=== PATIENT | male | born 1990 | race Caucasian/White ===

== ENCOUNTER 2017-12-10 06:44 | Emergency (ER) | payer MEDICARE, SELFPAY ==
[2017-12-10 06:45] VITALS: BP 131/70; PULSE 89; RESP 17; TEMP 36.7; O2SAT 99; BMI 24.1
--- NOTE | 2017-12-10 07:37 | CT_ITS ---
STUDY: CT ABDOMEN AND PELVIS WITH CONTRAST REASON FOR EXAM: Male, 27 years old. Abdominal pain. RADIATION DOSAGE (If Supplied By Facility): CTDIvol = ( 14.40 ) mGy, DLP = ( 715.40 ) mGycm TECHNIQUE: Transaxial images were obtained from the dome of the diaphragm to the symphysis pubis with oral contrast. 100 ml of Isovue 300 intravenous (IV) contrast was administered. Sagittal and coronal images were reconstructed. Individualized dose optimization techniques were used for this CT. COMPARISON: None. FINDINGS: The visualized lung bases are unremarkable. The visualized portions of the heart are within normal limits. Normal liver. Normal gallbladder and extrahepatic biliary system. Normal spleen. Normal pancreas. Normal bilateral adrenal glands. Normal right kidney. Normal left kidney. Mild intramural edema in the gastric antrum. Normal small intestine. Normal colon. The appendix is visualized and appears normal. Normal abdominal aorta. Normal inferior vena cava. Normal retroperitoneum. Normal urinary bladder. Normal abdominal wall. Minimal anterior wedging of the T12 superior endplate may be developmental or from remote injury. The osseous elements are otherwise normal. CT/Abdomen/Pelvis WITH Contrast IMPRESSION: Suspicious intramural edema in the gastric antrum may be due to gastritis. Endoscopy will help confirm/clarify. No other suspicious abnormality in the abdomen and pelvis. Minimal anterior wedging of T12 superior endplate may be due developmental or from remote injury. Electronically Signed: Crow Obregon MD at 10:37 EDT , Service support ,
[2017-12-10 07:55] LABS: Absolute Lymphocyte Count 2.39 X10^3/ul (0.83-4.51); Absolute Neutrophil Count 7.3 X10^3/uL (2.0-7.7); Basophil# 0.04 X10^3/uL; Basophil% 0.4 % (0-1); Eosinophil# 0.36 X10^3/uL; Eosinophils% 3.3 % (0-5); Hematocrit 49.9 % (40-54); Hemoglobin 16.6 g/dl (13.0-16.5); Lymphocyte # 2.39 X10^3/ul (4.0); Lymphocyte % 21.7 % (19-41); Mean Corp Hgb Conc 33.3 g/gl (32-36); Mean Corpuscular Hgb 31.3 pg (27.0-32.0); Mean Platelet Vol. 9.9 fl (6.2-12.0); Monocyte# 0.92 X10^3/uL; Monocyte% 8.4 % (0-10); Neutrophil # 7.28 X10^3/uL (2.7-7.7); POSITIVE COUNT NO; POSITIVE DIFFERENTIAL NO; POSITIVE MORPHOLOGY NO; Platelet Count 417 K/mm3 (150-450); RBC Distribution Width SD 51.1 fl (35.1-43.9); Red Blood Count 5.31 M/mm3 (4.6-6.2)
[2017-12-10] MEDS: Dicyclomine 20 MG/2 ML Vial IM (08:00)
[2017-12-10] MEDS: 0.9% Normal Saline 1,000 ML 125 ML IV (08:00)
[2017-12-10 08:04] LABS: BUN 11 mg/dL (7-18); Creatinine, Serum 0.86 mg/dL (0.70-1.30); EST Glomerular Filtration Rate 112 mL/min (>60); Estimated Creatinine Clearance 127.88 ml/min; Glucose 263 mg/dL (74-106)
[2017-12-10 08:05] LABS: ALB/GLOB Ratio 1.1 RATIO (0.9-2.4); AST(SGOT) 9 U/L (15-37); Alanine Aminotransfer ALT/SGPT 14 U/L (16-61); Albumin, Serum 3.6 g/dL (3.2-5.0); Alkaline Phosphatase 70 U/L (45-117); Anion Gap 4 (5-15); BUN/Creat Ratio 12.8 RATIO (10-20); Calcium,Total 8.7 mg/dL (8.5-10.1); Chloride 107 mmol/L (98-107); Est Glom Filt Rate - Afr Amer 136 mL/min (>60); Globulin 3.4 g/dL (2.2-4.2); Lipase 89 U/L (73-393); Potassium 3.9 mmol/L (3.5-5.1); Sodium Level 141 mmol/L (136-145)
[2017-12-10 09:44] LABS: Bacteria 0 SEEN /hpf (None Seen); Mucous, Urine 0 SEEN /hpf (<or=2+); White Blood Cells 0 SEEN /hpf (0-5)
[2017-12-10 09:47] LABS: Color, Urine Yellow (Yellow); Glucose, Dipstick 1000 mg/dl (Normal); Ketone-Dipstick 15 mg/dl (Negative); Leukocyte Esterase-Dipstick Negative /ul (Negative); Nitrite-Dipstick Negative (Negative); Occult Blood-Urine Negative /ul (Negative); Protein-Dipstick 15 mg/dl (Negative); Urine Bilirubin Dipstick Negative (Negative); Urine Clarity Clear (Clear); Urine Urobilinogen Normal (Normal); Urine pH 6.5 (5.0 - 8.0)
[2017-12-10 10:03] LABS: Red Blood Cells-Urine 0-5 SEEN /hpf (0-5); Squamous Epithelial Cells - UA 0-5 SEEN /hpf (0-5)
--- NOTE | 2017-12-10 11:03 | ED.DCSUM_ITS ---
- ER Visit Summary Date of Service: 12/10/17 Chief Complaint: [Abdominal pain] History of Present Illness: The patient is a 27 M [presents the emergency department complaint of lower abdominal discomfort for about a week. Patient states that he has had the urge to defecate and urinate frequently. Patient denies any significant dysuria with urinating. Patient states he normally gets small amount of stool out with each defecation that is formed and not been watery. Patient's not been ill otherwise. He has had no fever or vomiting. Patient has had some mild nausea. Patient does have a history of diabetes and history of MS.] Physical Examination: [HEENT-PERRLA, EOMI. Cranial nerves II through XII grossly intact. TMs clear. Mucous membranes moist. No adenopathy. Cardiovascular-regular rate and rhythm without murmur or ectopy Lungs-clear to auscultation, chest wall stable without crepitus or subcu emphysema Abdomen-normoactive bowel sounds, soft, no rebound or rigidity, no peritoneal signs. Patient has some mild suprapubic tenderness on palpation. Extremities-intact ?4, normal range of motion, normal pulses, atraumatic] Test Results: [CBC with differential obtained showed a white count 11.0, hemoglobin 16, hematocrit 50, platelets 417. Chemistries unremarkable. Glucose was 263. LFTs were normal. Lipase was normal. Urinalysis was normal. Other than patient was spilling glucose. CT scan of the abdomen and pelvis with IV and p.o. contrast ordered showed evidence suspicious for intramural edema and gastric antrum may be due to gastritis endoscopy will help confirm or clarify. No other suspicious abnormality in abdomen and pelvis noted.] Emergency Department Course and Treatment: [Patient was given a dose of Bentyl in the emergency department] Treatment Plan: [Patient will follow up with his MS physician and also will refer to Dr. Boy Moncada was on-call for general surgery if his symptoms persist] Disposition: [Discharged home in stable condition] Impression: [Abdominal pain-etiology uncertain] This note was generated with [employer] dictation software. It may contain incorrect words, spelling, and punctuation that were not noted in review of the chart prior to signing ED Disposition - Plan for ED Patient: Chief Complaint: Abd Pain Referrals: Neto Kirkland MD [Primary Care Provider] -
--- NOTE | 2017-12-10 11:03 | ED.DEP ---
ED Disposition - Plan for ED Patient: Chief Complaint: Abd Pain Instructions: ED Abdominal Pain Unkn Cause Male Prescriptions: Dicyclomine HCl [Bentyl] 20 mg PO TIDAC #20 cap Referrals: Boy Moncdaa MD [STAFF PHYSICIAN] - 3-5 Days Additional Instructions: see your MS doctor
== END 2017-12-10 11:21 | disposition home or self-care (01) ==
PROVIDERS: Emergency Provider Emergency Medicine; Family Provider Family Medicine; PCP Family Medicine
DX: R10.9 Unspecified abdominal pain (principal); E11.9 Type 2 diabetes mellitus without complications; G35 Multiple sclerosis; F12.90 Cannabis use, unspecified, uncomplicated; Z79.4 Long term (current) use of insulin; Z72.0 Tobacco use
CPT/HCPCS: 74177; 80053; 81001; 83690; 85025; 96360; 96361; 96372; 99283; J7030; Q9967; A4216

== ENCOUNTER → 2019-01-19 10:32 | Outpatient (CLI) | payer MEDICARE, SELFPAY ==
[2018-03-31 13:26] VITALS: BMI 22.1
[2019-01-19 13:26] LABS: ALB/GLOB Ratio 1.2 RATIO (0.9-2.4); AST(SGOT) 11 U/L (15-37); Alanine Aminotransfer ALT/SGPT 20 U/L (16-61); Albumin, Serum 4.2 g/dL (3.2-5.0); Alkaline Phosphatase 85 U/L (45-117); Anion Gap 3 (5-15); BUN 12 mg/dL (7-18); BUN/Creat Ratio 12.9 RATIO (10-20); Calcium,Total 9.1 mg/dL (8.5-10.1); Chloride 104 mmol/L (98-107); Creatinine, Serum 0.93 mg/dL (0.70-1.30); EST Glomerular Filtration Rate 102 mL/min (>60); Est Glom Filt Rate - Afr Amer 123 mL/min (>60); Globulin 3.6 g/dL (2.2-4.2); Glucose 310 mg/dL (74-106); Potassium 3.9 mmol/L (3.5-5.1); Protein, Total 7.8 g/dL (6.4-8.2); Sodium Level 137 mmol/L (136-145)
== END ==
PROVIDERS: Family Provider Family Medicine; PCP Family Medicine; Referring Provider Nurse Practitioner; Visit Provider Nurse Practitioner
DX: E10.9 Type 1 diabetes mellitus without complications (principal); Z79.4 Long term (current) use of insulin
CPT/HCPCS: 36415; 80053; 82043

== ENCOUNTER → 2020-02-12 11:42 | Outpatient (CLI) | payer MEDICARE, SELFPAY ==
[2020-02-11 11:23] VITALS: BMI 22.1
[2020-02-12 15:41] LABS: Vitamin D,25 Hydroxy 16.5 ng/mL
[2020-02-12 15:56] LABS: AST(SGOT) 20 U/L (15-37); Alanine Aminotransfer ALT/SGPT 15 U/L (16-61); Albumin, Serum 3.9 g/dL (3.2-5.0); Alkaline Phosphatase 89 U/L (45-117); Anion Gap 7 (5-15); BUN 15 mg/dL (7-18); BUN/Creat Ratio 14.9 RATIO (10-20); Calcium,Total 8.8 mg/dL (8.5-10.1); Chloride 100 mmol/L (98-107); Cholesterol 223 mg/dL (200); Creatinine, Serum 1.01 mg/dL (0.70-1.30); EST Glomerular Filtration Rate 92 mL/min (>60); Est Glom Filt Rate - Afr Amer 111 mL/min (>60); Globulin 3.8 g/dL (2.2-4.2); Glucose 285 mg/dL (74-106); High Density Lipoprotein 57 mg/dL; Potassium 4.5 mmol/L (3.5-5.1); Protein, Total 7.7 g/dL (6.4-8.2); Sodium Level 131 mmol/L (136-145); Thyroid Stim Hormone (TSH) 0.66 uIU/mL (0.358-3.74); Triglycerides 96 mg/dL; Very Low Density Lipoprotein 19 mg/dL (5-40)
[2020-02-12 16:06] LABS: Microalbumin:Creatinine Ratio 184.3 mg/g CRE (<30 mg/g CRE)
== END ==
PROVIDERS: PCP Family Medicine; Referring Provider Internal Medicine Endocrinology, Diabetes & Metabolism; Visit Provider Internal Medicine Endocrinology, Diabetes & Metabolism
DX: E10.8 Type 1 diabetes mellitus with unspecified complications (principal); E55.9 Vitamin D deficiency, unspecified
CPT/HCPCS: 36415; 80053; 80061; 82043; 82306; 82570; 84443

== ENCOUNTER → 2021-03-21 16:01 | Outpatient (CLI) | payer MEDICARE, SELFPAY ==
[2021-03-21 17:46] LABS: AST(SGOT) 11 U/L (15-37); Alanine Aminotransfer ALT/SGPT 15 U/L (16-61); Albumin, Serum 3.5 g/dL (3.2-5.0); Alkaline Phosphatase 65 U/L (45-117); Anion Gap 5 (5-15); BUN 13 mg/dL (7-18); BUN/Creat Ratio 12.3 RATIO (10-20); Calcium,Total 9.1 mg/dL (8.5-10.1); Chloride 103 mmol/L (98-107); Cholesterol 222 mg/dL (200); Creatinine, Serum 1.06 mg/dL (0.70-1.30); EST Glomerular Filtration Rate 86 mL/min (>60); Est Glom Filt Rate - Afr Amer 104 mL/min (>60); Globulin 3.4 g/dL (2.2-4.2); Glucose 323 mg/dL (74-106); High Density Lipoprotein 55 mg/dL; Potassium 4.5 mmol/L (3.5-5.1); Protein, Total 6.9 g/dL (6.4-8.2); Sodium Level 135 mmol/L (136-145); Thyroid Stim Hormone (TSH) 0.78 uIU/mL (0.358-3.74); Triglycerides 119 mg/dL; Very Low Density Lipoprotein 24 mg/dL (5-40)
== END ==
PROVIDERS: PCP Family Medicine; Referring Provider Nurse Practitioner Family; Visit Provider Nurse Practitioner Family
DX: E10.65 Type 1 diabetes mellitus with hyperglycemia (principal)
CPT/HCPCS: 36415; 80053; 80061; 84443

== ENCOUNTER 2021-07-30 18:02 | Emergency (ER) | payer MEDICARE, SELFPAY ==
[2021-07-30 18:03] VITALS: BP 122/68; PULSE 84; RESP 16; TEMP 36.9; O2SAT 99; BMI 21.0
--- NOTE | 2021-07-30 18:31 | CT_ITS ---
EXAM: CT ABDOMEN AND PELVIS WITHOUT INTRAVENOUS CONTRAST CLINICAL INDICATION: Abdominal pain. TECHNIQUE: Helically acquired images were obtained of the abdomen and pelvis without intravenous contrast. This CT exam was performed using one or more of the following dose reduction techniques: automated exposure control, adjustment of the mA and/or kV according to patient size, and/or use of iterative reconstruction technique. This report was created using [employer] report generation technology. COMPARISON: CT abdomen and pelvis with contrast 12/10/2017. FINDINGS: LOWER THORAX: Unremarkable. Lung bases are clear. No cardiomegaly. No significant pericardial effusion. ABDOMEN: LIVER: Unremarkable. Homogeneous. GALLBLADDER AND BILE DUCTS: Unremarkable. No calcified gallstones. No gallbladder distention or wall edema. No intra- or extrahepatic biliary ductal dilation. PANCREAS: Unremarkable. No focal cystic mass. SPLEEN: Unremarkable. Normal size without focal cystic or solid mass. ADRENALS: Unremarkable. No nodules. KIDNEYS AND URETERS: 2 mm nonobstructing calculus in the right lower renal pole. 2 mm nonobstructing calculus in the left lower renal calyx. No hydronephrosis in both kidneys. STOMACH AND BOWEL: Unremarkable. No stomach or bowel distention. No focal inflammatory change. PELVIS: APPENDIX: Normal. BLADDER: Mild thickening of the underdistended urinary bladder wall. REPRODUCTIVE: Unremarkable as visualized. No mass. ABDOMEN and PELVIS: INTRAPERITONEAL SPACE: Unremarkable. No ascites or other fluid collection. No free air. BONES/JOINTS: Unremarkable. No suspicious lytic or blastic abnormality. SOFT TISSUES: Unremarkable. No discrete abdominal or pelvic wall hernia. VASCULATURE: Unremarkable. Abdominal aorta is non-dilated. LYMPH NODES: Unremarkable. No enlarged lymph nodes. CT/Abdomen/Pelvis without Cont IMPRESSION: 1. 2 mm nonobstructing calculus in the right lower renal calyx and 2 mm nonobstructing calculus in the left lower renal calyx. These were not visible on 12/10/2017. 2. Mild thickening of the underdistended urinary bladder wall may be due to cystitis. 3. No suspicious acute abnormality in the abdomen and pelvis. 4. No other additional findings or changes. Electronically Signed: Crow Obregon MD at 19:24 EDT ,
--- NOTE | 2021-07-30 18:32 | EX.ED.GUMALE ---
HPI History of Present Illness Chief Complaint: Complaint Informant: patient Narrative Narrative: Patient presents with some intermittent hematuria for about 1 week. This started about on Saturday. He saw his doctor on Saturday. Up apparently urinalysis was done that showed no sign of infection. He does have follow-up CAT scan at the end of this week. He states he is really not having any significant flank or abdominal pain. A couple times he has had a small amount of discomfort over the bladder but is mostly with urination. He states sometimes the urine is clear and sometimes there is a variable amount of blood at the end. Possible small clots but not sure. He does not feel as though he is obstructed. He is eating and drinking and moving bowels well. No fevers or chills. He had subjective chills last night but it was only 1 time and it was brief. Patient is on immunosuppressants for MS. He is also diabetic. He has had a couple high sugars about 250 but normally he is 170 or less. He does not have a history of kidney stones. [facility] Medical History Microalbuminuria Multiple sclerosis Type 1 diabetes mellitus Home Medications rituximab 10 mg/mL concentrate,intravenous See Rx Instructions .ROUTE .COMPLEX ml 03/26/18 [History Last Taken Unknown] ibuprofen 600 mg tablet 600 mg PO Q6H PRN PRN 01/06/21 [History Last Taken Unknown] lisinopril 20 mg tablet 20 mg PO DAILY #90 tab 01/06/21 [Rx Last Taken Unknown] Novolog Flexpen U-100 Insulin 100 unit/mL (3 mL) subcutaneous 15 unit SC TID #45 ml NS 02/23/21 [Rx Last Taken Unknown] cholecalciferol (vitamin D3) 1,250 mcg (50,000 unit) capsule 1,250 mcg PO QWEEK #12 cap 03/21/21 [Rx Last Taken Unknown] rosuvastatin 5 mg tablet 5 mg PO DAILY #90 tab 03/22/21 [Rx Last Taken Unknown] ibuprofen 600 mg PO Q8H PRN PRN #20 tab 07/30/21 [Rx Last Taken Unknown] insulin glargine [Basaglar KwikPen U-100 Insulin] 14 unit SC BID 07/30/21 [History Last Taken Unknown] phenazopyridine [Pyridium] 200 mg PO TID #6 tab 07/30/21 [Rx Last Taken Unknown] sulfamethoxazole-trimethoprim [Bactrim DS] 1 tab PO BID #20 tab 07/30/21 [Rx Last Taken Unknown] Allergy/AdvReac Type Severity Reaction Status Date / Time No Known Allergies Allergy Verified 07/30/21 18:03 Family History Mother Diabetes Thyroid disorder Grandmother Diabetes Thyroid disorder Surgical History H/O adenoidectomy Hx of myringotomy Social History Smoking Status: Current every day smoker tobacco type: cigarettes second hand exposure: No alcohol intake: never substance use type: marijuana ROS ROS ED Constitutional Constitutional ED: Reports subjective ENT ENT ED: Denies rhinorrhea or sore throat Cardiovascular Cardiovascular: Denies chest pain Respiratory/Chest Respiratory/Chest: Denies dyspnea Gastrointestinal Gastrointestinal: Reports abdominal pain; Denies constipation, diarrhea, melena, nausea or vomiting Genitourinary Genitourinary ED: Reports hematuria Musculoskeletal Musculoskeletal: Denies back pain or myalgias Integumentary Denies rash Neurologic Neurologic: Denies headache(s) Endocrine Endocrinology: Denies polydipsia or polyuria Hematologic/Lymphatic Hematologic/Lymphatic: Denies easy bleeding or easy bruising Allergic/Immunologic Allergic/Immunologic ED: Denies urticaria EXAM Physical Exam Const Vital Signs: 07/30/21 18:03 Temperature 98.5 F Temperature Source Temporal Pulse Rate 84 Respiratory Rate 16 Blood Pressure 122/68 H Blood Pressure Mean 86 Pulse Ox 99 Oxygen Delivery Method Room Air Positive well nourished and well developed General Appearance ED: well developed and NAD HEENT Reports moist mucous membranes Eyes General Eye ED: Negative for pale conjunctiva Neck no JVD Resp normal respiratory effort and clear to auscultation bilaterally Cardio regular rate and regular rhythm GI non-tender, non-distended and no masses Auscultation: normoactive bowel sounds Palpation: soft no CVA tenderness Back/Spine no CVA tenderness Extremity normal to inspection Neuro oriented x3 Sensorium / Orientation: alert Psych mental status grossly normal Skin Lesions: no lesions Rashes: no rashes MDM MDM MDM Narrative Medical decision making narrative: Patient's white count is elevated at 14.8. Mild elevation of the hemoglobin to. Creatinine is just slightly up at 1.35. Urine shows greater than 100 red cells but also greater 100 white cells. It is turbid. There is also leukocyte Estrace. Patient's ketones are elevated but his bicarb and gap are normal. His glucose is also relatively normal. CT scan showed some calculus in the right and left renal structure. But none distal. No hydronephrosis. The bladder was thickened more consistent with inflammation or infection. The summation of the symptoms with some mild discomfort with urination, blood in the urine, high white count and inflamed thickened bladder on CT points to infection. I will treat with antibiotics. Cultures will be sent. We discussed reasons to return. Of note, patient felt his sugar was dropping. It was 52. He is now eating and drinking. He feels well enough to go home. Lab Data Attestation: I reviewed the patient's lab results. Labs: Laboratory Results - last 24 hr 07/30/21 07/30/21 07/30/21 18:37 18:45 18:45 WBC 14.8 H RBC 5.49 Hgb 16.9 H Hct 47.7 MCV 86.9 MCH 30.8 MCHC 35.4 RDW Std Deviation 43.7 RDW Coeff of Ronnell 13.6 Plt Count 404 MPV 10.4 Immature Gran % (Auto) 0.300 Neut % (Auto) 68.0 Lymph % (Auto) 18.1 L Wirt % (Auto) 10.0 Eos % (Auto) 3.2 Baso % (Auto) 0.4 Absolute Neuts (auto) 10.1 H Absolute Lymphs (auto) 2.68 Nucleated RBC % 0 Sodium 139 Potassium 3.6 Chloride 108 H Carbon Dioxide 24.0 Anion Gap 7 BUN 18 Creatinine 1.35 H Estim Creat Clear Calc 73.89 Est GFR (MDRD) Af Amer 79 Est GFR (MDRD) Non-Af 65 BUN/Creatinine Ratio 13.3 Glucose 111 H Calcium 9.1 Urine Color Varsha Urine Clarity Turbid Urine pH 7.0 Ur Specific [place] 1.015 Urine Protein 500 H Urine Glucose (UA) Normal Urine Ketones 5 H Urine Occult Blood 250 H Urine Nitrite Negative Urine Bilirubin Negative Urine Urobilinogen 1 H Ur Leukocyte Esterase 500 H Urine RBC > 100 SEEN Urine WBC >100 SEEN Ur Squamous Epith Cells 0 SEEN Urine Bacteria 0 SEEN Urine Mucus 0 SEEN POC Glucose 07/30/21 20:26 WBC RBC Hgb Hct MCV MCH MCHC RDW Std Deviation RDW Coeff of Ronnell Plt Count MPV Immature Gran % (Auto) Neut % (Auto) Lymph % (Auto) Wirt % (Auto) Eos % (Auto) Baso % (Auto) Absolute Neuts (auto) Absolute Lymphs (auto) Nucleated RBC % Sodium Potassium Chloride Carbon Dioxide Anion Gap BUN Creatinine Estim Creat Clear Calc Est GFR (MDRD) Af Amer Est GFR (MDRD) Non-Af BUN/Creatinine Ratio Glucose Calcium Urine Color Urine Clarity Urine pH Ur Specific [place] Urine Protein Urine Glucose (UA) Urine Ketones Urine Occult Blood Urine Nitrite Urine Bilirubin Urine Urobilinogen Ur Leukocyte Esterase Urine RBC Urine WBC Ur Squamous Epith Cells Urine Bacteria Urine Mucus POC Glucose 52 L Radiography Diagnostic Testing: Clinical Impression(s) from Imaging Studies Abdomen/Pelvis CT 07/30/21 18:31 IMPRESSION: 1. 2 mm nonobstructing calculus in the right lower renal calyx and 2 mm nonobstructing calculus in the left lower renal calyx. These were not visible on 12/10/2017. 2. Mild thickening of the underdistended urinary bladder wall may be due to cystitis. 3. No suspicious acute abnormality in the abdomen and pelvis. 4. No other additional findings or changes. Electronically Signed: Crow Obregon MD at 19:24 EDT Reading Location ID and State: [address] [place] [address] , Service support , Discharge Plan Triage Chief Complaint: Complaint ED Provider: Adrián Alarcon Dx/Rx/DC Orders Clinical Impression: Acute UTI, Hematuria Instructions: ED Bladder Infection, Male (Adult) Prescriptions: New ibuprofen 600 MG tablet 600 mg PO Q8H PRN PRN (Reason: pain) Qty: 20 RF: 0 phenazopyridine [Pyridium] 200 mg tablet 200 mg PO TID Qty: 6 RF: 0 sulfamethoxazole-trimethoprim [Bactrim DS] 800-160 mg tablet 1 tab PO BID Qty: 20 RF: 0 No Action rituximab 10 mg/mL concentrate,intravenous 10 mg/mL concentrate See Rx Instructions .ROUTE .COMPLEX RF: 0 ibuprofen 600 mg tablet 600 mg PO Q6H PRN PRN (Reason: Pain) RF: 0 lisinopril 20 mg tablet 20 mg PO DAILY Qty: 90 RF: 1 cholecalciferol (vitamin D3) 1,250 mcg (50,000 unit) capsule 1,250 mcg PO QWEEK Qty: 12 RF: 0 Basaglar KwikPen U-100 Insulin 100 unit/mL (3 mL) insulin pen 14 unit SC BID RF: 0 Novolog Flexpen U-100 Insulin 100 unit/mL (3 mL) insulin pen 15 unit SC TID Qty: 45 RF: 1 rosuvastatin 5 mg tablet 5 mg PO DAILY Qty: 90 RF: 3 Primary Care Provider: Neto Kirkland Referrals: Neto Kirkland MD [Primary Care Provider] - 3-5 Days Disposition Disposition: Home, Self Care
[2021-07-30 19:01] LABS: Bacteria 0 SEEN /hpf (None Seen); Mucous, Urine 0 SEEN /hpf (<or=2+); Squamous Epithelial Cells - UA 0 SEEN /hpf (0-5)
[2021-07-30 19:02] LABS: Absolute Lymphocyte Count 2.68 X10^3/uL (0.83-4.51); Absolute Neutrophil Count 10.1 X10^3/uL (2.0-7.7); Basophil# 0.06 X10^3/uL; Basophil% 0.4 % (0-1); Eosinophil# 0.48 X10^3/uL; Eosinophils% 3.2 % (0-5); Hematocrit 47.7 % (40-54); Hemoglobin 16.9 g/dL (13.0-16.5); Lymphocyte # 2.68 X10^3/ul (0.83-4.51); Lymphocyte % 18.1 % (19-41); Mean Corp Hgb Conc 35.4 g/dL (32-36); Mean Corpuscular Hgb 30.8 pg (27.0-32.0); Mean Corpuscular Volume 86.9 fL (80-94); Mean Platelet Vol. 10.4 fl (6.2-12.0); Monocyte# 1.48 X10^3/uL; NRBC Flagged by Analyzer 0 % (0-5); Neutrophil # 10.05 X10^3/uL (2.7-7.7); Platelet Count 404 K/mm3 (150-450); RBC Distribution Width CV 13.6 % (11.6-14.6); RBC Distribution Width SD 43.7 fl (35.1-43.9); Red Blood Count 5.49 M/mm3 (4.6-6.2); White Blood Count 14.8 K/mm3 (4.4-11.0)
[2021-07-30 19:11] LABS: Color, Urine Amber (Yellow); Glucose, Dipstick Normal (Normal); Ketone-Dipstick 5 mg/dl (Negative); Leukocyte Esterase-Dipstick 500 /ul (Negative); Nitrite-Dipstick Negative (Negative); Occult Blood-Urine 250 /ul (Negative); Protein-Dipstick 500 mg/dl (Negative); Specific Gravity, Urine 1.015 (1.002-1.030); Urine Bilirubin Dipstick Negative (Negative); Urine Clarity Turbid (Clear); Urine Urobilinogen 1 mg/dl (Normal)
[2021-07-30 19:20] LABS: Anion Gap 7 (5-15); BUN 18 mg/dL (7-18); BUN/Creat Ratio 13.3 RATIO (10-20); Calcium,Total 9.1 mg/dL (8.5-10.1); Chloride 108 mmol/L (98-107); Creatinine, Serum 1.35 mg/dL (0.70-1.30); EST Glomerular Filtration Rate 65 mL/min (>60); Est Glom Filt Rate - Afr Amer 79 mL/min (>60); Estimated Creatinine Clearance 73.89 ml/min; Glucose 111 mg/dL (74-106); Potassium 3.6 mmol/L (3.5-5.1); Sodium Level 139 mmol/L (136-145)
[2021-07-30 19:49] LABS: Red Blood Cells-Urine > 100 SEEN /hpf (0-5); White Blood Cells >100 SEEN /hpf (0-5)
[2021-07-30 20:30] LABS: Bedside Glucose 52 mg/dL (74-106)
[2021-07-30 20:58] VITALS: BP 114/95; PULSE 82; RESP 18; O2SAT 98
[2021-07-30] MEDS: Smz/Tmp Ds Tablet 1 TABLET PO (20:58)
[2021-07-30 21:06] LABS: Bedside Glucose 93 mg/dL (74-106)
== END 2021-07-30 20:59 | disposition home or self-care (01) ==
PROVIDERS: Emergency Provider Emergency Medicine; PCP Family Medicine; Visit Provider Emergency Medicine
DX: N39.0 Urinary tract infection, site not specified (principal); E10.9 Type 1 diabetes mellitus without complications; Z79.4 Long term (current) use of insulin; R31.9 Hematuria, unspecified; F12.90 Cannabis use, unspecified, uncomplicated; F17.210 Nicotine dependence, cigarettes, uncomplicated; Z79.899 Other long term (current) drug therapy
CPT/HCPCS: 74176; 80048; 81001; 82962; 85025; 87086; 99284; A4216

== ENCOUNTER 2022-04-17 06:30 | Day surgery (SDC) | payer SELFPAY ==
[2022-04-17] VITALS (7 sets, daily range): BP systolic 101–142; BP diastolic 61–80; PULSE 69–83; RESP 18; TEMP 36.3–36.9; O2SAT 97–100; BMI 22.8
[2022-04-17 07:15] LABS: Bedside Glucose 220 mg/dL (74-106)
[2022-04-17] MEDS: Lactated Ringers 1,000 ML 15 ML IV (07:20)
[2022-04-17 07:23] LABS: Hematocrit 48.2 % (40-54); Hemoglobin 15.7 g/dL (13.0-16.5); Mean Corp Hgb Conc 32.6 g/dL (32-36); Mean Corpuscular Hgb 29.9 pg (27.0-32.0); Mean Corpuscular Volume 91.8 fL (80-94); Mean Platelet Vol. 9.4 fl (6.2-12.0); Platelet Count 415 K/mm3 (150-450); RBC Distribution Width CV 13.9 % (11.6-14.6); RBC Distribution Width SD 47.6 fl (35.1-43.9); Red Blood Count 5.25 M/mm3 (4.6-6.2)
[2022-04-17] MEDS: Clindamycin 900 MG/50 ML BAG 75 MG IV (08:00)
[2022-04-17] MEDS: Lidocaine 2% /Epi 1:100 (20ml) 20 ML VIAL ×2 (08:30→09:30)
[2022-04-17] MEDS: Bupivacaine Mpf 0.5% 30 ML VIAL (09:50)
--- NOTE | 2022-04-17 10:42 | OP.PCM_ITS ---
Report of Operation Date of Procedure: 04/17/22 Pre-Operative Diagnosis: Carious and abscessed teeth both maxillary and mandibu ar Post-Operative Diagnosis: same Surgery/Procedure Performed:: Total odontectomy with radical alveoloplasty Description of Surgical Findings:: abscessed teeth, non restorable teeth Surgeon: Hector Trevizo Type of Anesthesia: General/Supplemental Estimated Blood Loss (mL): 150 Description of Procedure: Patient identified in -op and the risks and complications were explained in detail as to the procedure. Mom and patient agree and consent obtained. Patient placed on OR table in supine position. Appropriate anesthesia monitors placed. IV anesthesia given and patient intubated via nasal endotracheal route w/o complications. Prepped and draped in usual manner. Lidocaine 2% injected into the lower arch via IAF blocks. Full thickness flaps elevated throughout the lower teeth via sulcular incisions. The teeth removed with standard surgical technique and then radical alveoloplasty performed throughout the mandible. Sites irrigated and sutured with 3-0 chromic suture. Next our attention was directed at the maxillary dentition where full thickness mucoperiosteal flaps were raised from sulcular incisions. The teeth were removed and alveoloplasty performed. Irrigated and sutured. The oral cavity was suctioned free and the throat pack was removed. He was awakened in the OR extubated and taken to PACU in stable condition breathing spontaneously. Grafts/Implants Used: none Procedure Start Time: 08:10 (10:15) Procedure Stop Time: 10:15 Complications none Admit VTE Documentation VTE Present on Admission: Yes VTE Pharm Prophylaxis ordered?: No
--- NOTE | 2022-04-17 11:03 | SUR.PHASEI ---
Ice packs applied to bilat face per Dr Trevizo
[2022-04-17 11:05] LABS: Bedside Glucose 211 mg/dL (74-106)
== END 2022-04-17 12:42 | disposition home or self-care (01) ==
LOC: SDC 06:35 → AC 06:35
PROVIDERS: PCP Family Medicine; Referring Provider Dentist Oral and Maxillofacial Surgery; Visit Provider Dentist Oral and Maxillofacial Surgery
PROC: (CPT 41899; principal; 2022-04-17 07:45)
DX: K08.89 Other specified disorders of teeth and supporting structures (principal); E10.9 Type 1 diabetes mellitus without complications; Z79.4 Long term (current) use of insulin; K02.9 Dental caries, unspecified; F32.A Depression, unspecified; F17.200 Nicotine dependence, unspecified, uncomplicated; Z79.899 Other long term (current) drug therapy
CPT/HCPCS: 41899; 41874; 00170; 82962; 85027; J7120; J2405

== ENCOUNTER 2024-07-22 11:49 | Emergency (ER) | payer MEDICARE, MEDICAID, SELFPAY ==
[2024-07-22 11:49] VITALS: BP 107/70; PULSE 114; RESP 20; TEMP 36.6; O2SAT 95; BMI 21.1
[2024-07-22 12:31] VITALS: O2SAT 97
--- NOTE | 2024-07-22 13:22 | ED.VIS.DYS ---
HPI History of Present Illness Chief Complaint: Shortness of Breath Informant: patient and family Narrative Narrative: 34-year-old male presenting to the emergency room with 2 to 3 days of cough and shortness of breath progressively worsening. He states that he has a history of asthma as well as multiple sclerosis. He is also an insulin-dependent diabetic. He states that he ran out of his albuterol inhaler. He called his doctor today to get a refill. They noted that he seemed short of breath and advised him to come to emergency. Patient notes that he does have to take a breath in his sentences to breathe. He notes his cough is productive of sputum. He denies fever. No vomiting or diarrhea. He states that on a typical week he needs to use his inhaler a couple times each week but through this illness has been using it more frequently. He notes his doctor did authorize a refill of his albuterol inhaler [facility] Medical History Presence of insulin pump Wears glasses Marijuana use Leg cramps Smoker History of stress test Microalbuminuria Multiple sclerosis Type 1 diabetes mellitus Home Medications ?Medication ?Instructions ?Recorded ?Last Taken ?Type rituximab 10 mg/mL See Rx Instructions .Route .COMPLEX 03/26/18 Unknown History concentrate,intravenous (Rituxan) pen needle, diabetic 32 gauge x #150 ea 07/03/22 Unknown Rx (BD Ultra-Fine Key Pen Needle) insulin lispro 100 unit/mL 100 unit subcut DAILY #30 mL 02/25/24 Unknown Rx subcutaneous solution (Humalog U-100 Insulin) insulin pump cart,automated,BT #10 ea 02/25/24 Unknown Rx lisinopril 20 mg tablet 20 mg PO DAILY #90 tabs 02/25/24 Unknown Rx doxycycline monohydrate 100 mg 100 mg PO BID #14 CAPSULES 07/22/24 Unknown Rx capsule prednisone 20 mg tablet 60 mg (3 x 20 mg) PO DAILY #12 07/22/24 Unknown Rx TABLETS Allergy/AdvReac Type Severity Reaction Status Date / Time No Known Allergies Allergy Verified 07/22/24 11:51 Family History Mother Diabetes Thyroid disorder Grandmother Diabetes Thyroid disorder Surgical History History of bladder surgery Hx of myringotomy Social History Smoking Status: Current every day smoker tobacco type: cigarettes second hand exposure: No alcohol intake: never substance use type: marijuana ROS ROS ED Constitutional Constitutional ED: Denies chills, fever(s) or weight loss Eyes Eyes: Denies change in vision or diplopia ENT ENT ED: Denies ear pain, rhinorrhea or sore throat Cardiovascular Cardiovascular: Denies chest pain, orthopnea, palpitations or racing heartbeat Respiratory/Chest Respiratory/Chest: Reports cough, dyspnea and dyspnea on exertion; Denies orthopnea Gastrointestinal Gastrointestinal: Denies abdominal pain, diarrhea, nausea or vomiting Genitourinary Genitourinary ED: Denies dysuria, hematuria or urinary frequency Musculoskeletal Musculoskeletal: Denies arthralgias or myalgias Integumentary Denies abscess or rash Neurologic Neurologic: Denies headache(s) or weakness Psychiatric Psychiatric: Denies anxiety, depression, suicidal ideation or suicidal thoughts Endocrine Endocrinology: Denies polydipsia, polyphagia or polyuria Allergic/Immunologic Allergic/Immunologic ED: Denies mouth swelling, tongue swelling or urticaria EXAM Physical Exam Const Vital Signs: 07/22/24 11:49 07/22/24 12:31 07/22/24 13:34 Temperature 97.8 F Temperature Source Temporal Pulse Rate 114 H 102 H Respiratory Rate 20 H 20 H Respiratory Effort Normal Respiratory Depth Shallow Respiratory Pattern Irregular Normal Blood Pressure 107/70 Blood Pressure Mean 82 Pulse Ox 95 Oxygen Delivery Method Room Air Room Air 07/22/24 14:00 Temperature Temperature Source Pulse Rate 64 Respiratory Rate 18 Respiratory Effort Respiratory Depth Respiratory Pattern Blood Pressure 129/78 H Blood Pressure Mean 95 Pulse Ox 98 Oxygen Delivery Method Room Air Positive well nourished and well developed General Appearance ED: well developed and NAD HEENT Reports normocephalic, head/scalp atraumatic and moist mucous membranes Eyes PERRL and EOMs intact bilaterally Neck no lymphadenopathy, supple and no JVD Resp normal respiratory effort Resp Narrative: Patient with a mild conversational dyspnea Auscultation: rhonchi lower bilaterally and wheezes expiratory wheezes Cardio regular rate, regular rhythm and no murmurs GI normal to inspection, nondistended, normoactive bowel sounds and non-tender Palpation: soft Back/Spine no CVA tenderness and normal ROM Extremity normal to inspection General Extremety ED: Negative for edema General Extremity: Negative for edema Neuro oriented x3 and CN's II-XII intact bilaterally Sensorium / Orientation: alert Motor Exam: strength 5/5 throughout Psych mental status grossly normal Mood & Affect: Negative for depressed or tearful Skin no rashes or lesions noted and no wounds MDM MDM MDM Narrative Medical decision making narrative: Differential diagnosis includes but not limited to asthma exacerbation bronchitis pneumonia pleural effusion viral syndrome COVID influenza and RSV swab was negative. My independent interpretation of the chest x-ray is no acute process. Radiology reads this as a possible left upper lobe stranding. I do not think it is unreasonable to do a short course of doxycycline as well as burst dose prednisone. He will be getting a new inhaler at the pharmacy as well today. Patient to return if worsening or concerns History & Record Review Discussion w/independent historian: Patient and Family Radiography Diagnostic Testing: Clinical Impression(s) from Imaging Studies Chest X-Ray 07/22/24 13:55 IMPRESSION: Left upper lobe stranding opacity could be atelectasis or pneumonia. Reading Location: [facility] Discharge Plan Triage Chief Complaint: Shortness of Breath ED Provider: Yair Jane Dx/Rx/DC Orders Clinical Impression: Asthma, Bronchitis Instructions: ED Bronchitis with Wheezing (Adult), Asthma Prescriptions: New prednisone 20 mg tablet 60 mg PO DAILY Qty: 12 0RF doxycycline monohydrate 100 mg capsule 100 mg PO BID Qty: 14 0RF No Action Rituxan 10 mg/mL concentrate See Rx Instructions .ROUTE .COMPLEX Patient Comments: infusion q 6 months Rx Instructions: 10 mg intravenously ;infusion q 6 months (DME) pen needle, diabetic [BD Ultra-Fine Key Pen Needle] 32 gauge x 5/32 needle See Rx Instructions .ROUTE .MEDSUPPLY Qty: 150 6RF Rx Instructions: 5 times daily lisinopril 20 mg tablet 20 mg PO DAILY Qty: 90 3RF insulin lispro [Humalog U-100 Insulin] 100 unit/mL solution 100 unit subcut DAILY Qty: 30 6RF Rx Instructions: via insulin pump (DME) insulin pump cart,automated,BT Cartridge See Rx Instructions .Route Qty: 10 5RF Rx Instructions: 1 pod q 72 hrs Primary Care Provider: Neto Kirkland Referrals: Neto Kirkland MD [Primary Care Provider] - As Needed Print Language: Gabonese Disposition Disposition: Home, Self Care
[2024-07-22] MEDS: predniSONE 20 MG Tablet 60 MG PO (13:28)
[2024-07-22] MEDS: Ipratropium/Albuterol Sulfate 3 ML AMPUL.NEB INHALATION (13:33)
[2024-07-22 13:34] VITALS: PULSE 102; RESP 20
--- NOTE | 2024-07-22 13:55 | RAD_ITS ---
EXAM: XR Chest, 2 Views CLINICAL INDICATION: COUGH TECHNIQUE: Frontal and lateral views of the chest. COMPARISON: No relevant prior studies available. FINDINGS: LUNGS AND PLEURAL SPACES: Left upper lobe stranding opacity could be atelectasis or pneumonia. No pneumothorax. HEART: Unremarkable. No cardiomegaly. MEDIASTINUM: Unremarkable. Normal mediastinal contour. BONES/JOINTS: Unremarkable. No acute fracture. RAD/Chest PA and Lateral IMPRESSION: Left upper lobe stranding opacity could be atelectasis or pneumonia. [facility]
[2024-07-22 14:00] VITALS: BP 129/78; PULSE 64; RESP 18; O2SAT 98
[2024-07-22 15:00] VITALS: BP 136/72; PULSE 89; RESP 12; TEMP 37.2; O2SAT 99
== END 2024-07-22 15:11 | disposition home or self-care (01) ==
PROVIDERS: Emergency Provider Emergency Medicine; PCP Family Medicine; Visit Provider Emergency Medicine
DX: J40 Bronchitis, not specified as acute or chronic (principal); G35 Multiple sclerosis; E10.9 Type 1 diabetes mellitus without complications; Z96.41 Presence of insulin pump (external) (internal); F17.210 Nicotine dependence, cigarettes, uncomplicated
CPT/HCPCS: 71046; 87631; 94640; 99282

== ENCOUNTER 2025-03-02 19:06 | Inpatient (IN) | payer MEDICARE, MEDICAID, SELFPAY ==
[2025-03-02] VITALS (10 sets, daily range): BP systolic 122–145; BP diastolic 64–81; PULSE 89–128; RESP 17–30; TEMP 36.6–36.8; O2SAT 88–98; BMI 19.9
--- NOTE | 2025-03-02 19:58 | EKG12_ITS ---
Test Reason : SOB
--- NOTE | 2025-03-02 19:59 | ED.VIS.DYS ---
HPI History of Present Illness Chief Complaint: Shortness of Breath Detail of Chief Complaint: Shortness of breath Informant: patient Narrative Narrative: Patient presents with shortness of breath that started 2 days ago. He describes a cough that is productive of some phlegm at times. He said no fever. He does describe some chills. He does have history of asthma and his inhaler is not helping him. Does have history of pneumonia. Patient is a type I diabetic. Denies recent travel or surgery. Patient also has history of MS. Denies sick contacts. [facility] Medical History Presence of insulin pump Wears glasses Marijuana use Leg cramps Smoker History of stress test Microalbuminuria Multiple sclerosis Type 1 diabetes mellitus Home Medications ?Medication ?Instructions ?Recorded ?Last Taken ?Type rituximab 10 mg/mL See Rx Instructions .Route .COMPLEX 03/26/18 Unknown History concentrate,intravenous (Rituxan) pen needle, diabetic 32 gauge x #150 ea 07/03/22 Unknown Rx (BD Ultra-Fine Key Pen Needle) lisinopril 20 mg tablet 20 mg PO DAILY #90 tabs 02/25/24 Unknown Rx doxycycline monohydrate 100 mg 100 mg PO BID #14 CAPSULES 07/22/24 Unknown Rx capsule prednisone 20 mg tablet 60 mg (3 x 20 mg) PO DAILY #12 07/22/24 Unknown Rx TABLETS cholecalciferol (vitamin D3) 1,250 1,250 mcg PO QWEEK 09/01/24 Unknown History mcg (50,000 unit) capsule insulin pump cart,automated,BT #10 ea 10/09/24 Unknown Rx insulin aspart U-100 100 unit/mL 100 unit continuous subcutaneous 10/26/24 Unknown Rx subcutaneous solution infusion .continuous #30 mL Allergy/AdvReac Type Severity Reaction Status Date / Time No Known Allergies Allergy Verified 03/02/25 19:07 Family History Mother Diabetes Thyroid disorder Grandmother Diabetes Thyroid disorder Surgical History History of bladder surgery Hx of myringotomy Social History Smoking Status: Current every day smoker tobacco type: cigarettes second hand exposure: No alcohol intake: never substance use type: marijuana ROS ROS ED Review of Systems ROS Unobtainable: other Constitutional Constitutional ED: Reports chills and lethargy; Denies fever(s), sweats or weight loss Eyes Eyes: Denies blurry vision, change in vision or diplopia ENT ENT ED: Denies rhinorrhea or sore throat Cardiovascular Cardiovascular: Denies chest pain, orthopnea or racing heartbeat Respiratory/Chest Respiratory/Chest: Reports cough, dyspnea and dyspnea on exertion; Denies orthopnea or sputum Gastrointestinal Gastrointestinal: Denies abdominal pain, diarrhea, nausea or vomiting Genitourinary Genitourinary ED: Denies dysuria, hematuria or urinary frequency Musculoskeletal Musculoskeletal: Denies arthralgias, back pain, myalgias or neck pain Integumentary Denies abscess, Abrasions or rash Neurologic Neurologic: Denies headache(s) or weakness Psychiatric Psychiatric: Denies anxiety, depression or suicidal thoughts Endocrine Endocrinology: Denies polydipsia, polyphagia or polyuria Hematologic/Lymphatic Hematologic/Lymphatic: Denies easy bleeding, easy bruising or lymphadenopathy Allergic/Immunologic Allergic/Immunologic ED: Denies mouth swelling, tongue swelling or urticaria EXAM Physical Exam Const Vital Signs: 03/02/25 19:07 03/02/25 19:45 03/02/25 20:06 Temperature 97.9 F Temperature Source Temporal Pulse Rate 116 H 89 Respiratory Rate 24 H 17 Respiratory Effort Short of Breath Labored Respiratory Pattern Blood Pressure 136/76 H 130/81 H Blood Pressure Mean 96 97 Pulse Ox 91 97 Oxygen Delivery Method Room Air Room Air Nasal Cannula Oxygen Flow Rate (L/min) 2 03/02/25 20:08 03/02/25 20:15 03/02/25 20:15 Temperature Temperature Source Pulse Rate 111 H Respiratory Rate 24 H Respiratory Effort Respiratory Pattern Tachypnea Blood Pressure Blood Pressure Mean Pulse Ox 97 98 Oxygen Delivery Method Nasal Cannula Nasal Cannula Oxygen Flow Rate (L/min) 2 7 03/02/25 20:30 03/02/25 22:07 03/02/25 22:10 Temperature 97.8 F 98 F Temperature Source Oral Temporal Pulse Rate 97 114 H 123 H Respiratory Rate 23 H 23 H 30 H Respiratory Effort Respiratory Pattern Tachypnea Blood Pressure 145/64 H 137/76 H Blood Pressure Mean 91 96 Pulse Ox 96 96 Oxygen Delivery Method Room Air Nasal Cannula Oxygen Flow Rate (L/min) 2 2 Positive well nourished and well developed General Appearance ED: well developed and NAD HEENT Reports TM's clear and moist mucous membranes normocephalic and atraumatic; Negative for trauma or tenderness Tympanic Membrane ED: Yes TM's clear Eyes PERRL and EOMs intact bilaterally General Eye ED: Negative for pale conjunctiva or scleral icterus Neck no lymphadenopathy, supple and no JVD General: Negative for tenderness Chest Wall inspection of chest normal and palpation of chest normal Chest: Negative for tenderness Resp normal respiratory effort and clear to auscultation bilaterally Resp Narrative: Mild tachypnea. Mild conversational dyspnea. Some faint expiratory wheezes bilaterally with some diminished breath sounds in the left lower lobe. Effort and Inspection: Negative for respiratory distress or pain with movement Auscultation: wheezes; Negative for rhonchi or diminished lung sounds Cardio regular rhythm, S1 normal heart sound, S2 normal heart sound and no murmurs; Negative for regular rate Rate: tachycardic Peripheral Pulses: pulses 2+ throughout GI normal to inspection, nondistended, normoactive bowel sounds, soft to palpation, non-tender, non-distended and no masses Back/Spine no CVA tenderness and no thoracic nor lumbar tenderness Extremity normal to inspection General Extremety ED: Negative for edema General Extremity: Negative for edema Neuro oriented x3, CN's II-XII intact bilaterally, no sensory deficits noted and gait normal Sensorium / Orientation: awake, alert, oriented to person, oriented to place and oriented to time Motor Exam: strength 5/5 throughout and strength abnormal Psych mental status grossly normal Skin no rashes or lesions noted and no wounds MDM MDM MDM Narrative Medical decision making narrative: Patient presents with dyspnea and cough x 2 days. History of asthma. History of pneumonia in November. Patient also with history of MS. He has cough and sputum production. Denies fever. IV line established. Blood cultures obtained. He was treated with a DuoNeb aerosol and given prednisone 40 mg p.o. CBC with differential obtained showed an elevated WBC count of 30,000 with hemoglobin of 16 and platelet count of 712,000. Chemistries unremarkable. D-dimer normal at 0.27. 1 view chest x-ray obtained showed no obvious infiltrates. Patient was started empirically on Levaquin 750 mg IV. He continued to be quite dyspneic and with activity became tachycardic and his O2 saturation would drop into the 80s even though he is on 2 L nasal cannula O2. Continues to be tachypneic. Will discuss with hospitalist to evaluate patient for admission. Concern for pneumonia and asthma exacerbation. Patient also at high risk due to the fact that he is a type I diabetic. Lab Data Attestation: I reviewed the patient's lab results. Labs: Laboratory Results - last 24 hr 03/02/25 20:35 WBC 30.5 H* RBC 5.81 Hgb 16.6 H Hct 50.9 MCV 87.6 MCH 28.6 MCHC 32.6 RDW Std Deviation 45.3 H RDW Coeff of Ronnell 14.0 Plt Count 712 H MPV 8.7 Immature Gran % (Auto) 0.700 Neut % (Auto) 83.3 H Lymph % (Auto) 5.9 L Fisher % (Auto) 9.5 Eos % (Auto) 0.1 Baso % (Auto) 0.5 Absolute Neuts (auto) 25.4 H Absolute Lymphs (auto) 1.81 Nucleated RBC % 0 D-Dimer Quant (PE/DVT) 0.27 Sodium 137 Potassium 4.2 Chloride 97 L Carbon Dioxide 24.9 Anion Gap 16 H BUN 13 Creatinine 0.72 Estim Creat Clear Calc 127.52 Est GFR (MDRD) Non-Af 122 BUN/Creatinine Ratio 18.4 Glucose 117 H Calcium 9.6 Radiography Diagnostic Testing: Clinical Impression(s) from Imaging Studies Chest X-Ray 03/02/25 20:15 IMPRESSION: Mild pulmonary vascular congestion. No focal consolidation. Reading Location: [facility] 1 view chest x-ray obtained interpreted by myself as no evidence of infiltrate or pneumothorax or acute disease process. Radiology in agreement. EKG Initial EKG: Attestation: I personally reviewed and interpreted this EKG as follows: Comments: Sinus tachycardia with ventricular rate of 108 bpm with right atrial enlargement. Discharge Plan Dx/Rx/DC Orders Clinical Impression: Dyspnea, Leukocytosis, Asthma exacerbation, Acute upper respiratory infection Disposition Disposition: [facility]
--- NOTE | 2025-03-02 20:15 | RAD_ITS ---
PROCEDURE: RAD/Chest 1 View (Portable)
[2025-03-02] MEDS: 0.9% Normal Saline (1000mL) 1,000 ML 150 ML IV (20:44)
[2025-03-02 21:35] LABS: Hematocrit 50.9 % (40-54); Hemoglobin 16.6 g/dL (13.0-16.5); Immature Granulocytes Count 0.200 X10^3/uL (0.0-0.0); Mean Corp Hgb Conc 32.6 g/dL (32-36); Mean Corpuscular Volume 87.6 fL (80-94); Mean Platelet Vol. 8.7 fl (6.2-12.0); NRBC Flagged by Analyzer 0 % (0-5); POSITIVE COUNT YES; POSITIVE DIFFERENTIAL YES; Platelet Count 712 K/mm3 (150-450); RBC Distribution Width CV 14.0 % (11.6-14.6); RBC Distribution Width SD 45.3 fl (35.1-43.9); Red Blood Count 5.81 M/mm3 (4.6-6.2)
[2025-03-02 21:49] LABS: Anion Gap 16 (5-15); BUN 13 mg/dL (4-19); BUN/Creat Ratio 18.4 RATIO (10-20); Calcium,Total 9.6 mg/dL (7.6-11.0); Carbon Dioxide 24.9 mmol/L (21.0-32.0); Chloride 97 mmol/L (98-108); Estimated Creatinine Clearance 127.52 ml/min (50-250); Glucose 117 mg/dL (70-99); Potassium 4.2 mmol/L (3.3-5.1)
[2025-03-02 21:59] LABS: Differential Indicated SCAN CRITERIA MET
[2025-03-02 22:03] LABS: White Blood Count 30.5 K/mm3 (4.4-11.0)
[2025-03-02] MEDS: Albuterol 2.5 MG/3 ML VIAL.NEB. INHALATION ×2 (22:09)
[2025-03-02 22:30] LABS: D-Dimer Quantitative (DVT/PE) 0.27 FEU/ug/m (0.27-0.49)
[2025-03-02] MEDS: levoFLOXacin IV 750 MG/150 ML BAG 100 MG IV (22:36)
--- NOTE | 2025-03-02 23:20 | PCM.HP.STD ---
HPI - General General Date of Admission: 03/02/25 Date of Service: 03/02/25 Chief Complaint: SOB and Wheezing. HPI Narrative NICK LEVINE, is a 34 M with a past medical history of DM-1 (~1996); s/p insulin pump with microalbuminuria and history of DKA, history of tobacco abuse; with severe asthma, history of pneumonia, history of medical cannabis use and relapsing-remitting multiple sclerosis who presents to [facility] ER complaining of shortness of breath and wheezing. Mr. Levine reports that symptoms began approximately 2 days ago with dyspnea on exertion that progressed to shortness of breath at rest. He also admits to cough that is productive of yellowish/goldberg-colored phlegm with chills and lethargy. He states he has been using his emergency asthma inhaler but it has not helped so he decided to come in for further evaluation and treatment. He denies related fever, recent sick contacts, recent travel, changes in vision, discharge from eyes, runny nose, sore throat, ear pain, chest pain, heart racing, palpitations, abdominal pain, nausea, vomiting, diarrhea, constipation, dysuria, hematuria, headache or rash. In the ER he was noted to have Leukocytosis of 30.5 K present on admission with a CXR that revealed mild pulmonary vascular congestion with no focal consolidation with the ER physician rightly suspecting early Pneumonia with viral panel positive for Rhinovirus complicated by clinical evidence of AE Asthma causing Acute Respiratory Insufficiency with incidentally noted Thrombocytosis of 712K present on admission and he was then admitted to the PCU for ongoing care for his day that is expected to extend beyond 2 midnights. [facility] Medical History Presence of insulin pump Wears glasses Marijuana use Leg cramps Smoker History of stress test Microalbuminuria Multiple sclerosis Type 1 diabetes mellitus Home Medications ?Medication ?Instructions ?Recorded ?Last Taken ?Type rituximab 10 mg/mL See Rx Instructions .Route .COMPLEX 03/26/18 Unknown History concentrate,intravenous (Rituxan) pen needle, diabetic 32 gauge x #150 ea 07/03/22 Unknown Rx (BD Ultra-Fine Key Pen Needle) lisinopril 20 mg tablet 20 mg PO DAILY #90 tabs 02/25/24 Unknown Rx cholecalciferol (vitamin D3) 1,250 1,250 mcg PO QWEEK 09/01/24 Unknown History mcg (50,000 unit) capsule insulin pump cart,automated,BT #10 ea 10/09/24 Unknown Rx insulin aspart U-100 100 unit/mL 100 unit continuous subcutaneous 10/26/24 Unknown Rx subcutaneous solution infusion .continuous #30 mL albuterol sulfate 90 mcg/actuation 2 puff inhalation Q4H PRN wheezing 03/02/25 Unknown History aerosol inhaler chlorhexidine gluconate 0.12 % 1 applic PO BID 03/02/25 Unknown History mouthwash hydroxyzine HCl 25 mg tablet 25 mg PO DAILY 03/02/25 Unknown History solifenacin 10 mg tablet 10 mg PO DAILY 03/02/25 Unknown History Allergy/AdvReac Type Severity Reaction Status Date / Time No Known Allergies Allergy Verified 03/02/25 19:07 Family History Mother Diabetes Thyroid disorder Grandmother Diabetes Thyroid disorder Surgical History History of bladder surgery Hx of myringotomy Social History Smoking Status: Current every day smoker tobacco type: cigarettes second hand exposure: No alcohol intake: never substance use type: marijuana ROS ROS Narrative Review of Systems: Constitutional: Patient admits to chills and lethargy but denies fever. Eyes: Patient denies changes in vision or discharge from eyes. ENT: Patient denies runny nose, sore throat or ear pain. Resp: Patient admits to shortness of breath, wheezing and productive cough of yellowish sputum as per HPI. CV: Patient denies chest pain, palpitations, heart racing or lower extremity edema. GI: Patient denies abdominal pain, nausea, vomiting, diarrhea or constipation. : Patient denies dysuria, hematuria or urinary frequency. MSK: Patient denies arthralgias or myalgias. Skin: Patient denies rash, abscess, wounds or jaundice. Psych: Patient denies symptoms of uncontrolled depression or anxiety. Neuro: Patient denies headache, paresthesias or focal neurologic deficits. Allergy: Patient denies lip swelling, tongue swelling or urticaria. Hematology: Patient denies easy bleeding or easy bruisability. Endocrinology: Patient denies polyuria, polydipsia, polyphagia or heat/cold intolerance. 14 point ROS otherwise negative except for positives noted above in HPI. Vital Signs Vital Signs Vital Signs: 03/02/25 19:07 03/02/25 19:45 03/02/25 20:06 Temperature 97.9 F Temperature Source Temporal Pulse Rate 116 H 89 Respiratory Rate 24 H 17 Respiratory Effort Short of Breath Labored Respiratory Pattern Blood Pressure 136/76 H 130/81 H Blood Pressure Mean 96 97 Pulse Ox 91 97 Oxygen Delivery Method Room Air Room Air Nasal Cannula Oxygen Flow Rate (L/min) 2 03/02/25 20:08 03/02/25 20:15 03/02/25 20:15 Temperature Temperature Source Pulse Rate 111 H Respiratory Rate 24 H Respiratory Effort Respiratory Pattern Tachypnea Blood Pressure Blood Pressure Mean Pulse Ox 97 98 Oxygen Delivery Method Nasal Cannula Nasal Cannula Oxygen Flow Rate (L/min) 2 7 03/02/25 20:30 03/02/25 22:07 03/02/25 22:10 Temperature 97.8 F 98 F Temperature Source Oral Temporal Pulse Rate 97 114 H 123 H Respiratory Rate 23 H 23 H 30 H Respiratory Effort Respiratory Pattern Tachypnea Blood Pressure 145/64 H 137/76 H Blood Pressure Mean 91 96 Pulse Ox 96 96 Oxygen Delivery Method Room Air Nasal Cannula Oxygen Flow Rate (L/min) 2 2 03/02/25 23:00 Temperature 98.2 F Temperature Source Oral Pulse Rate 128 H Respiratory Rate 21 H Respiratory Effort Respiratory Pattern Blood Pressure 140/76 H Blood Pressure Mean 97 Pulse Ox 94 Oxygen Delivery Method Nasal Cannula Oxygen Flow Rate (L/min) 2 Weight Weight: 138 lb 12.8 oz Body Mass Index (BMI) 19.9 Physical Exam Const alert, oriented x3 and average body habitus Constitutional Narrative: Mild distress noted. General Appearance: cooperative HEENT normocephalic, head/scalp atraumatic, hearing grossly normal bilaterally and moist oral mucous membranes Eyes PERRL, EOMs intact bilaterally and conjunctivae normal Neck no lymphadenopathy, supple and no JVD Resp Resp Narrative: Diminished breath sounds throughout with faint expiratory wheezes bilaterally and mild conversational dyspnea. Cardio regular rate and regular rhythm GI normal to inspection, nondistended, normoactive bowel sounds, soft to palpation, non-tender and non-distended Extremity normal to inspection, full ROM and no clubbing, cyanosis or edema Skin Skin Narrative: Patient has no evidence of rash, abscess, wounds or jaundice. Neuro oriented x3, CN's II-XII intact bilaterally, moves all extremities and no focal motor deficits Sensorium / Orientation: awake, alert, oriented to person, oriented to place and oriented to time Speech: speech normal Psych affect normal Results Medical Records Data Attestation: I reviewed the patient's medical records Lab / Micro Data Attestation: I reviewed the patient's lab results. 03/02/25 20:35 03/02/25 20:35 Labs: Laboratory Results - last 24 hr 03/02/25 20:35: WBC 30.5 H*, RBC 5.81, Hgb 16.6 H, Hct 50.9, MCV 87.6, MCH 28.6, MCHC 32.6, RDW Std Deviation 45.3 H, RDW Coeff of Ronnell 14.0, Plt Count 712 H, MPV 8.7, Immature Gran % (Auto) 0.700, Neut % (Auto) 83.3 H, Lymph % (Auto) 5.9 L, [place] % (Auto) 9.5, Eos % (Auto) 0.1, Baso % (Auto) 0.5, Absolute Neuts (auto) 25.4 H, Absolute Lymphs (auto) 1.81, Nucleated RBC % 0, D-Dimer Quant (PE/DVT) 0.27, Sodium 137, Potassium 4.2, Chloride 97 L, Carbon Dioxide 24.9, Anion Gap 16 H, BUN 13, Creatinine 0.72, Estim Creat Clear Calc 127.52, Est GFR (MDRD) Non-Af 122, BUN/Creatinine Ratio 18.4, Glucose 117 H, Calcium 9.6 Micro: Microbiology 03/02/25 20:30 Mucosa - Nose SARS-CoV-2, Influenza & RSV (PCR) - Final Imaging Radiology Impression Chest X-Ray 03/02/25 20:15 IMPRESSION: Mild pulmonary vascular congestion. No focal consolidation. Reading Location: [id number] Imaging Services [address], [place] [id number] Chest WITH Contrast MR#: [id number] Acct: [id number] Name: NICK LEVINE Rep #: [id number] : 1990 M 34 From: Doni Manjarrez MD PCP: Dr. Neto Kirkland MD Status: ADM IN Study: Chest WITH Contrast Date of Exam: 03/02/25 Exam# [id number] Ordering Dr: Dewayne Mullen DO PROCEDURE: CHEST WITH CONTRAST N/A REASON FOR EXAM: SUSPECTED PNEUMONIA ON CXR WITH AE ASTHMA. TECHNIQUE: Procedure Code: CTCHW Modality: CT Procedure: CHEST WITH CONTRAST Coronal and Sagittal reconstruction series were provided. CONTRAST: VOLUME: mL One or more dose reduction techniques were used (e.g., Automated exposure control, adjustment of the mA and/or kV according to patient size, use of iterative reconstruction technique). FINDINGS: Diffuse tree-in-bud densities are noted throughout both lungs and all lobes, concerning for endobronchial spread of an infectious etiology. No airspace consolidation. No pleural effusion. The heart is normal in size. The great vessels appear unremarkable. No thoracic lymphadenopathy. No acute osseous abnormality. CT/Chest WITH Contrast IMPRESSION: Diffuse tree-in-bud densities throughout both lungs, concerning for endobronchial spread of an infectious etiology. Reading Location: [id number] CC: Dr. Neto Kirkland MD; Dr. Dewayne Mullen DO ~ Business Relations Manager: Signed Assessment & Plan Assessment/Plan (1) Leukocytosis: QUALIFIERS: Leukocytosis type: unspecified Qualified Code(s): D72.829 - Elevated white blood cell count, unspecified (2) Pneumonia: QUALIFIERS: Laterality: unspecified laterality Lung location: unspecified part of lung Pneumonia type: due to unspecified organism Qualified Code(s): J18.9 - Pneumonia, unspecified organism (3) Rhinovirus: (4) Asthma exacerbation: QUALIFIERS: Asthma persistence: persistent Asthma severity: unspecified severity Qualified Code(s): J45.901 - Unspecified asthma with (acute) exacerbation (5) Acute respiratory insufficiency: (6) Tobacco abuse: (7) Thrombocytosis: (8) Type 1 diabetes mellitus with complication, with long-term current use of insulin: PLAN: Plan 1. Leukocytosis of 30.5 K present on admission with a CXR that revealed mild pulmonary vascular congestion with no focal consolidation with the ER physician rightly suspecting Pneumonia with viral respiratory panel positive for Rhinovirus - Admit to PCU on droplet isolation. Give IV ceftriaxone plus IV doxycycline with CT scan of chest confirming infiltrate. Check urinary antigens to Streptococcus pneumonia and Legionella. Sputum culture pending. Continue vitamin D3 and add vitamin C and zinc. Give acetaminophen as needed for pain or fever. 2. AE Asthma causing Acute Respiratory Insufficiency due to #1 - Continue methylprednisolone IV begun in ER. Give scheduled and as needed nebulizers. Wean supplemental oxygen as tolerated. 3. Thrombocytosis of 712K present on admission complicating #1 & #2 - Serialize CBC daily to follow trend. Suspected acute phase reactant. 4. History of tobacco abuse exacerbating #1 - #3 - Tobacco Cessation will be strongly encouraged from nicotine patch effort to control cravings. 5. DM-1 (~1996); s/p insulin pump with microalbuminuria and history of DKA adding to the medical complexity of #1 - #4 - Maintain insulin pump as previous. Check hemoglobin A1c to objectively assess quality of diabetic control. 6. History of pneumonia - Noted with CT of chest pending for #1. 7. History of medical cannabis use - Noted. 8. Relapsing-remitting multiple sclerosis - Apparently stable at this time. 9. DVT/GI prophylaxis - Enoxaparin 40 mg sq daily plus SCD's. Pantoprazole 40 mg PO daily. Total time: Approximately (but not less than) 75 minutes. Charges/Coding Visit Charges Inpatient E&M: 31401 Init Hosp L3
[2025-03-02 23:21] LABS: Differential Comment SCANNED
--- NOTE | 2025-03-02 23:42 | CT_ITS ---
PROCEDURE: CT/Chest WITH Contrast
[2025-03-03] VITALS (8 sets, daily range): BP systolic 117–144; BP diastolic 57–72; PULSE 86–122; RESP 16–26; TEMP 36.5–37; O2SAT 94–99; BMI 19.8
[2025-03-03 00:37] LABS: Magnesium 2.4 mg/dL (1.5-2.2)
[2025-03-03] MEDS: 0.9% Normal Saline (1000mL) 1,000 ML 125 ML IV ×2 (01:06→09:27)
[2025-03-03 01:41] LABS: Mucous, Urine 0 SEEN /hpf (<or=2+); Squamous Epithelial Cells - UA 0 SEEN /hpf (0-5)
[2025-03-03] MEDS: Doxycycline 100 MG in 0.9% Normal Saline (250mL Bag) 250 ML 250 MG IV ×2 (01:43→10:52)
[2025-03-03 01:45] LABS: Color, Urine Yellow (Yellow); Glucose, Dipstick 100 mg/dl (Normal); Ketone-Dipstick 15 mg/dl (Negative); Leukocyte Esterase-Dipstick 25 /ul (Negative); Nitrite-Dipstick Negative (Negative); Occult Blood-Urine 150 /ul (Negative); Protein-Dipstick 100 mg/dl (Negative); Specific Gravity, Urine 1.015 (1.002-1.030); Urine Bilirubin Dipstick Negative (Negative)
[2025-03-03 01:57] LABS: Red Blood Cells-Urine 0-5 SEEN /hpf (0-5)
[2025-03-03] MEDS: Nicotine (PBKC) 14 MG Patch TD ×2 (02:14→10:58)
[2025-03-03] MEDS: 0.9% Saline Lock 10 ML Syringe IV ×3 (02:15→14:37)
[2025-03-03 07:17] LABS: Hematocrit 43.1 % (40-54); Hemoglobin 14.5 g/dL (13.0-16.5); Immature Granulocytes Count 0.220 X10^3/uL (0.0-0.0); Mean Corp Hgb Conc 33.6 g/dL (32-36); Mean Corpuscular Volume 87.1 fL (80-94); Mean Platelet Vol. 8.6 fl (6.2-12.0); NRBC Flagged by Analyzer 0 % (0-5); POSITIVE DIFFERENTIAL YES; Platelet Count 613 K/mm3 (150-450); RBC Distribution Width CV 14.1 % (11.6-14.6); RBC Distribution Width SD 45.2 fl (35.1-43.9); Red Blood Count 4.95 M/mm3 (4.6-6.2); White Blood Count 29.1 K/mm3 (4.4-11.0)
[2025-03-03 07:26] LABS: Differential Indicated SCAN CRITERIA MET
[2025-03-03 07:47] LABS: AST(SGOT) 11 U/L (<=37); Alanine Aminotransfer ALT/SGPT 8 U/L (<=46); Albumin, Serum 3.7 g/dL (3.5-5.0); Alkaline Phosphatase 108 U/L (40-129); Anion Gap 12 (5-15); BUN 12 mg/dL (4-19); BUN/Creat Ratio 20.2 RATIO (10-20); Calcium,Total 8.6 mg/dL (7.6-11.0); Carbon Dioxide 21.8 mmol/L (21.0-32.0); Chloride 102 mmol/L (98-108); Estimated Creatinine Clearance 149.42 ml/min (50-250); Globulin 2.9 g/dL (2.2-4.2); Glucose 234 mg/dL (70-99); Potassium 4.8 mmol/L (3.3-5.1)
[2025-03-03] MEDS: INSULIN PUMP (SELF-ADMIN/POM) 1 EACH NOTE ×4 (09:12→22:00)
[2025-03-03] MEDS: Tolterodine Tartrate 4 MG CAP.SA PO (09:17)
[2025-03-03] MEDS: Chlorhexidine 480 ML 15 ML PO ×2 (09:18→21:55)
[2025-03-03] MEDS: hydrOXYzine PAM 25 MG Capsule PO (09:18)
[2025-03-03] MEDS: Zinc Sulfate 50 mg zinc (220 mg) ORAL capsule PO (09:19)
--- NOTE | 2025-03-03 10:55 | PN.HOSP_ITS ---
Reason for Visit
--- NOTE | 2025-03-03 10:55 | PCM.PN.HOSP ---
Reason for Visit Chief Complaint: SOB and Wheezing. Objective Data Objective Data Vital Signs: Vital Signs Temp Pulse Resp BP Pulse Ox O2 Del Method O2 Flow Rate 97.7 F L 86 18 122/57 H 99 Nasal Cannula 2 03/03/25 09:32 03/03/25 09:32 03/03/25 09:32 03/03/25 09:32 03/03/25 09:32 03/03/25 09:32 03/03/25 09:32 Oxygen Flow Rate (L/min) 2 Oxygen Delivery Method Nasal Cannula Weight: 137 lb 12.623 oz Body Mass Index (BMI) 19.8 Intake & Output: Intake and Output for Last 24 Hours 03/01/25 03/02/25 03/03/25 23:59 23:59 23:59 Intake Total 2490 / 2490 Output Total 600 / 600 Balance 1890 / 1890 Lab / Micro Data 03/03/25 06:41 03/03/25 06:41 Labs: Laboratory Results - last 24 hr 03/02/25 20:35: WBC 30.5 H*, RBC 5.81, Hgb 16.6 H, Hct 50.9, MCV 87.6, MCH 28.6, MCHC 32.6, RDW Std Deviation 45.3 H, RDW Coeff of Ronnell 14.0, Plt Count 712 H, MPV 8.7, Immature Gran % (Auto) 0.700, Neut % (Auto) 83.3 H, Lymph % (Auto) 5.9 L, [place]by % (Auto) 9.5, Eos % (Auto) 0.1, Baso % (Auto) 0.5, Absolute Neuts (auto) 25.4 H, Absolute Lymphs (auto) 1.81, Nucleated RBC % 0, Differential Comment SCANNED, Diff Path Review May bhavin, Platelet Estimate MKD INC, D-Dimer Quant (PE/DVT) 0.27, Sodium 137, Potassium 4.2, Chloride 97 L, Carbon Dioxide 24.9, Anion Gap 16 H, BUN 13, Creatinine 0.72, Estim Creat Clear Calc 127.52, Est GFR (MDRD) Non-Af 122, BUN/Creatinine Ratio 18.4, Glucose 117 H, Hemoglobin A1c 8.2 H, Calcium 9.6, Magnesium 2.4 H 03/03/25 01:25: Urine Color Yellow, Urine Clarity Clear, Urine pH 5.0, Ur Specific [place] 1.015, Urine Protein 100 H, Urine Glucose (UA) 100 H, Urine Ketones 15 H, Urine Occult Blood 150 H, Urine Nitrite Negative, Urine Bilirubin Negative, Urine Urobilinogen Normal, Ur Leukocyte Esterase 25 H, Urine RBC 0-5 SEEN, Urine WBC 0-5 SEEN, Ur Squamous Epith Cells 0 SEEN, Urine Bacteria 0 SEEN, Urine Mucus 0 SEEN 03/03/25 06:41: WBC 29.1 H, RBC 4.95, Hgb 14.5, Hct 43.1, MCV 87.1, MCH 29.3, MCHC 33.6, RDW Std Deviation 45.2 H, RDW Coeff of Ronnell 14.1, Plt Count 613 H, MPV 8.6, Immature Gran % (Auto) 0.800, Neut % (Auto) 95.1 H, Lymph % (Auto) 2.6 L, Crosby % (Auto) 1.3, Eos % (Auto) 0.0, Baso % (Auto) 0.2, Absolute Neuts (auto) 27.7 H, Absolute Lymphs (auto) 0.76 L, Nucleated RBC % 0, Sodium 135, Potassium 4.8, Chloride 102, Carbon Dioxide 21.8, Anion Gap 12, BUN 12, Creatinine 0.61 L, Estim Creat Clear Calc 149.42, Est GFR (MDRD) Non-Af 128, BUN/Creatinine Ratio 20.2 H, Glucose 234 H, Calcium 8.6, Phosphorus 2.3 L, Total Bilirubin 0.26, AST 11, ALT 8, Alkaline Phosphatase 108, Total Protein 6.6, Albumin 3.7, Globulin 2.9, Albumin/Globulin Ratio 1.3, TSH 0.339 03/03/25 09:07: POC Glucose 210 H Micro: Microbiology 03/03/25 01:25 Urine, Clean Catch Legionella Antigen - Final 03/03/25 01:25 Urine, Clean Catch Streptococcus pneumoniae Antigen (M - Final 03/03/25 01:35 Mucosa - Nasopharyngeal Respiratory Panel (PCR) - Final Rhinovirus 03/02/25 20:30 Mucosa - Nose SARS-CoV-2, Influenza & RSV (PCR) - Final Radiography Diagnostic Testing: Radiology Impression Chest X-Ray 03/02/25 20:15 IMPRESSION: Mild pulmonary vascular congestion. No focal consolidation. Reading Location: [facility] Chest CT 03/02/25 23:42 IMPRESSION: Diffuse tree-in-bud densities throughout both lungs, concerning for endobronchial spread of an infectious etiology. Reading Location: [id number] Physical Exam Narrative Seen and examined. Patient admitted with shortness of breath. Has history of asthma since young age, adulthood, diagnosed in 20s. He also has history of autoimmune disease including DM type I and multiple sclerosis. Patient's mother and sister present in the room. Physical exam General: Alert, Oriented x3, Cooperative. BMI 19.8 kg/m? HEENT: Atraumatic, PERRLA, EOMI, Normocephalic. Oral: No Gingival or Mucosal Lesions/ Ulcerations Neck: Supple, No JVD, Negative Carotid Bruits Chest wall/Lungs: Air entry diminished in bilateral lung bases. Mild and fine expiratory wheezing Cardiovascular: Regular rate and rhythm, Normal S1,S2, No M/G/R Abdomen: Bowel Sounds Present, Soft, Non Tender, Non-Distended : No dysuria. No renal angle tenderness. No suprapubic tenderness. Extremities: No edema, Capillary Refill Less than 3 Seconds Skin: No rashes, No breakdown Musculoskeletal: No Tenderness to Palpation of Joints or Extremities Neurological: Cranial nerves II-XII grossly intact, DTR 2+/4. No acute focal neurological deficit. Psych/Mental Status: Normal Affect, Appropriate. Assessment & Plan Assessment/Plan (1) Leukocytosis: QUALIFIERS: Leukocytosis type: unspecified Qualified Code(s): D72.829 - Elevated white blood cell count, unspecified (2) Pneumonia: QUALIFIERS: Laterality: unspecified laterality Lung location: unspecified part of lung Pneumonia type: due to unspecified organism Qualified Code(s): J18.9 - Pneumonia, unspecified organism (3) Rhinovirus: (4) Asthma exacerbation: QUALIFIERS: Asthma persistence: persistent Asthma severity: unspecified severity Qualified Code(s): J45.901 - Unspecified asthma with (acute) exacerbation (5) Acute respiratory insufficiency: (6) Tobacco abuse: (7) Thrombocytosis: (8) Type 1 diabetes mellitus with complication, with long-term current use of insulin: PLAN: Plan 34-year-old male admitted with shortness of breath for few days using albuterol neb without improvement. History of adult onset asthma, type 1 diabetes mellitus and multiple sclerosis 1. Acute exacerbation of asthma due to viral pneumonia from rhinovirus: Patient is being admitted in PCU. Chest x-ray initially reviewed and shows mild pulmonary vascular congestion with no focal consolidation. Furthermore, patient had CT chest, imaging reviewed shows diffuse tree-in-bud densities in all lobes concerning for endobronchial infectious etiology but no airspace consolidation. No pleural effusion. No thoracic lymphadenopathy. Discussed with patient's mother and sister and seems bronchiolar/interstitial pneumonia possible due to rhinovirus pneumonia. Urinary antigens are negative. Respiratory panel positive for rhinovirus. has leukocytosis 30.5 K, predominantly neutrophil 83 to 95%, thrombocytosis. Discontinue ceftriaxone and doxycycline 2. Mild hypoxia with acute asthma exacerbation: Patient is being managed on scheduled bronchodilator, IV Solu-Medrol, Mucinex, incentive spirometry and Pep.. 3. Thrombocytosis of 712K present on admission: Monitor CBC 4. Chronic active smoking with history of nicotine dependence: Patient on nicotine patch. 5. DM-1 (~1996); s/p insulin pump with microalbuminuria and history of DKA - Maintain insulin pump as previous. A1c 8.2%. 6. History of pneumonia - Noted with CT of chest pending for #1. 7. History of medical cannabis use - Noted. 8. Relapsing-remitting multiple sclerosis - Apparently stable at this time. 9. DVT/GI prophylaxis - Enoxaparin 40 mg sq daily plus SCD's. Pantoprazole 40 mg PO daily. Microbiology Past 72 Hours 03/03/25 03:10 Sputum, Expectorated/Coughed Gram Stain - Final 03/03/25 01:25 Urine, Clean Catch Legionella Antigen - Final 03/03/25 01:25 Urine, Clean Catch Streptococcus pneumoniae Antigen (M - Final 03/03/25 01:35 Mucosa - Nasopharyngeal Respiratory Panel (PCR) - Final Rhinovirus 03/02/25 20:30 Mucosa - Nose SARS-CoV-2, Influenza & RSV (PCR) - Final Laboratory Results 03/02/25 20:35: WBC 30.5 H*, RBC 5.81, Hgb 16.6 H, Hct 50.9, MCV 87.6, MCH 28.6, MCHC 32.6, RDW Std Deviation 45.3 H, RDW Coeff of Ronnell 14.0, Plt Count 712 H, MPV 8.7, Immature Gran % (Auto) 0.700, Neut % (Auto) 83.3 H, Lymph % (Auto) 5.9 L, Crosby % (Auto) 9.5, Eos % (Auto) 0.1, Baso % (Auto) 0.5, Absolute Neuts (auto) 25.4 H, Absolute Lymphs (auto) 1.81, Nucleated RBC % 0, Differential Comment SCANNED, Diff Path Review September, Platelet Estimate MKD INC, D-Dimer Quant (PE/DVT) 0.27, Sodium 137, Potassium 4.2, Chloride 97 L, Carbon Dioxide 24.9, Anion Gap 16 H, BUN 13, Creatinine 0.72, Estim Creat Clear Calc 127.52, Est GFR (MDRD) Non-Af 122, BUN/Creatinine Ratio 18.4, Glucose 117 H, Hemoglobin A1c 8.2 H, Calcium 9.6, Magnesium 2.4 H 03/03/25 01:25: Urine Color Yellow, Urine Clarity Clear, Urine pH 5.0, Ur Specific [place] 1.015, Urine Protein 100 H, Urine Glucose (UA) 100 H, Urine Ketones 15 H, Urine Occult Blood 150 H, Urine Nitrite Negative, Urine Bilirubin Negative, Urine Urobilinogen Normal, Ur Leukocyte Esterase 25 H, Urine RBC 0-5 SEEN, Urine WBC 0-5 SEEN, Ur Squamous Epith Cells 0 SEEN, Urine Bacteria 0 SEEN, Urine Mucus 0 SEEN 03/03/25 06:41: WBC 29.1 H, RBC 4.95, Hgb 14.5, Hct 43.1, MCV 87.1, MCH 29.3, MCHC 33.6, RDW Std Deviation 45.2 H, RDW Coeff of Ronnell 14.1, Plt Count 613 H, MPV 8.6, Immature Gran % (Auto) 0.800, Neut % (Auto) 95.1 H, Lymph % (Auto) 2.6 L, [place] % (Auto) 1.3, Eos % (Auto) 0.0, Baso % (Auto) 0.2, Absolute Neuts (auto) 27.7 H, Absolute Lymphs (auto) 0.76 L, Nucleated RBC % 0, Sodium 135, Potassium 4.8, Chloride 102, Carbon Dioxide 21.8, Anion Gap 12, BUN 12, Creatinine 0.61 L, Estim Creat Clear Calc 149.42, Est GFR (MDRD) Non-Af 128, BUN/Creatinine Ratio 20.2 H, Glucose 234 H, Calcium 8.6, Phosphorus 2.3 L, Total Bilirubin 0.26, AST 11, ALT 8, Alkaline Phosphatase 108, Total Protein 6.6, Albumin 3.7, Globulin 2.9, Albumin/Globulin Ratio 1.3, TSH 0.339 03/03/25 09:07: POC Glucose 210 H 03/03/25 10:56: POC Glucose 307 H Charges/Coding Visit Charges Inpatient E&M: 89162 Subs Hosp L2
--- NOTE | 2025-03-03 12:15 | CASEMGMT ---
RN?CM?ASSESSMENT ? RN?CM?to room to meet with patient for initial transition planning/care coordination?assessment.?RN?CM?introduced self and role at [facility].? Pt voices understanding and consents to?assessment?at this time.? Pt resting in bed in no distress at this time.? Mother & sister @ bedside. Pt is A/O at this time and answers all questions appropriately.?? Care providers, pharmacy, and demographics verified/updated at this time. ? Strata: 2 PCP: Dr Kirkland Specialists: Dr Mendoza-endocrinology, Dr Ramirez- urology. Pt sees a physician @ [facility] for MS. Mom states pt plans to f/u with manufacturing executive after discharge. List of local pulmonologists provided. Preferred Pharmacy: [facility] Retail @ discharge Insurance: [facility] Dual, [facility] Prescription Benefit:?yes LNOK: MotherFlora Living Arrangements: Lives alone in one-story home w/2 total steps to enter w/rail. Denies difficulty with stairs. Independent. Pt states his mom comes to clean sometimes. Transportation:?Mom DME: States has the following DME:?Functioning CGM w/sufficient supplies, insulin pump w/sufficient supplies/needles & sufficient amt of insulin. Pt does not have home O2. Verbal review of local DME companies. They chose [employer] if O2 is needed. Mom states they would like a nebulizer @ discharge. Pt does not have a pulse ox. RN CM recommended to get one and made aware of locations this can be purchased. HHC/SNF: Hx [facility] RU in 2017, then went to OP therapy. No hx of HHC. ? Pt wishes to return home and states has no concerns with going home at time of discharge. CM?to follow for home oxygen needs and any further discharge planning/needs.? Pt and mom voice no further concerns/needs at this time.? Advised them to ask for?CM?if any further questions/concerns/needs arise.? They voice understanding. ? PLAN:??Home. Follow for possible need of O2 @ discharge. Pt would like a nebulizer. ? Zak BSN?RN?CM
[2025-03-03] MEDS: 0.9% Normal Saline (1000mL) 1,000 ML 150 ML IV (21:56)
[2025-03-04] VITALS (17 sets, daily range): BP systolic 113–148; BP diastolic 61–80; PULSE 71–131; RESP 16–28; TEMP 36.5–36.9; O2SAT 89–99; BMI 19.9
[2025-03-04] MEDS: INSULIN PUMP (SELF-ADMIN/POM) 1 EACH NOTE ×4 (06:18→22:14)
[2025-03-04] MEDS: hydrOXYzine PAM 25 MG Capsule PO (09:48)
[2025-03-04] MEDS: Nicotine (PBKC) 14 MG Patch TD (09:48)
[2025-03-04] MEDS: Tolterodine Tartrate 4 MG CAP.SA PO (09:49)
[2025-03-04] MEDS: FLU VACCINE 2025-26(6MOS UP) 45 MCG/0.5 ML SYRINGE IM (10:07)
[2025-03-04 10:09] LABS: Hematocrit 41.4 % (40-54); Hemoglobin 13.5 g/dL (13.0-16.5); Immature Granulocytes Count 0.460 X10^3/uL (0.0-0.0); Mean Corp Hgb Conc 32.6 g/dL (32-36); Mean Corpuscular Volume 90.0 fL (80-94); Mean Platelet Vol. 9.1 fl (6.2-12.0); NRBC Flagged by Analyzer 0 % (0-5); POSITIVE COUNT YES; POSITIVE DIFFERENTIAL YES; Platelet Count 636 K/mm3 (150-450); RBC Distribution Width CV 14.4 % (11.6-14.6); RBC Distribution Width SD 47.6 fl (35.1-43.9); Red Blood Count 4.60 M/mm3 (4.6-6.2); White Blood Count 43.0 K/mm3 (4.4-11.0)
[2025-03-04] MEDS: Chlorhexidine 480 ML 15 ML PO ×2 (10:09→22:18)
[2025-03-04 10:11] LABS: Differential Indicated SCAN CRITERIA MET
[2025-03-04 10:24] LABS: Anion Gap 13 (5-15); BUN 14 mg/dL (4-19); BUN/Creat Ratio 24.7 RATIO (10-20); Calcium,Total 8.6 mg/dL (7.6-11.0); Carbon Dioxide 20.2 mmol/L (21.0-32.0); Chloride 106 mmol/L (98-108); Estimated Creatinine Clearance 160.93 ml/min (50-250); Glucose 213 mg/dL (70-99); Potassium 4.6 mmol/L (3.3-5.1)
--- NOTE | 2025-03-04 15:44 | CHAPLAIN ---
Type of Pastoral Visit _x__ Initial Visit ___ Follow-up Visit ___ On-call Visit ___ General Patient Visit ___ Spiritual Assessment ___ Family Conference ___ Bereavement ___ Rapid Response ___ Code Blue ___ Other (describe below) Pastoral Care Referral From _x__ Patient ___ Family ___ Nurse ___ Physician ___ Appeals Coordinator ___ Electrical And Radio Mock Up Mechanic ___ Other (describe below) Sacrament/Intervention _x__ Active listening ___ Anointing ___ Worship ___ Bereavement ___ Communion _x__ Rashmi exploration ___ _x__ Life review _x__ Prayer ___ Reconciliation ___ Sacrament of Sick _x__ Supportive presence ___ Wedding ___ Other (describe below) Pastoral Comments patient and mother are in the room; mother remembers this absence management consultant who often saw her mother when she was a patient in the hospital; pt is welcoming and expresses thanks for the visit; pt is often tearful during the visit; pt explains his fear when he could not breathe earlier this week; mother explains that patient has had multiple health issues but has been doing amazingly well against the odds; pt agrees that he is overcoming and gives credit to God's help, his work to get better, and good attitude of perseverance and of lessons learned; pt speaks of influence of his now grandma and her rashmi; pt states he has lots of support; pt has reached some goals he set for himself; pt gets emotional at times in describing his experiences; this absence management consultant affirms and commends the pt on how he has taken control of his life and health and for his rashmi in God; pt welcomes prayer for support and again mentions appreciation for the visit; visit ended so patient can regain calm and quiet
--- NOTE | 2025-03-04 16:46 | PN.HOSP_ITS ---
Reason for Visit
--- NOTE | 2025-03-04 16:46 | PCM.PN.HOSP ---
Reason for Visit Chief Complaint: SOB and Wheezing. Objective Data Objective Data Vital Signs: Vital Signs Temp Pulse Resp BP Pulse Ox O2 Del Method O2 Flow Rate 98.4 F 90 20 H 127/66 H 95 Room Air 2 03/04/25 16:18 03/04/25 16:18 03/04/25 16:18 03/04/25 16:18 03/04/25 16:18 03/04/25 16:18 03/04/25 11:32 Oxygen Flow Rate (L/min) 2 Oxygen Delivery Method Room Air Weight: 138 lb 10.732 oz Body Mass Index (BMI) 19.9 Intake & Output: Intake and Output for Last 24 Hours 03/02/25 03/03/25 03/04/25 23:59 23:59 23:59 Intake Total 4550 / 4550 915 / 915 Output Total 600 / 600 Balance 3950 / 3950 915 / 915 Lab / Micro Data 03/04/25 05:15 03/04/25 05:15 Labs: Laboratory Results - last 24 hr 03/02/25 20:35: Diff Path Review Reviewed 03/03/25 16:56: POC Glucose 312 H 03/03/25 21:49: POC Glucose 237 H 03/04/25 05:15: WBC 43.0 H*, RBC 4.60, Hgb 13.5, Hct 41.4, MCV 90.0, MCH 29.3, MCHC 32.6, RDW Std Deviation 47.6 H, RDW Coeff of Ronnell 14.4, Plt Count 636 H, MPV 9.1, Immature Gran % (Auto) 1.100 H, Neut % (Auto) 89.5 H, Lymph % (Auto) 3.2 L, [place] % (Auto) 5.8, Eos % (Auto) 0.1, Baso % (Auto) 0.3, Absolute Neuts (auto) 38.5 H, Absolute Lymphs (auto) 1.36, Nucleated RBC % 0, Sodium 139, Potassium 4.6, Chloride 106, Carbon Dioxide 20.2 L, Anion Gap 13, BUN 14, Creatinine 0.57 L, Estim Creat Clear Calc 160.93, Est GFR (MDRD) Non-Af 131, BUN/Creatinine Ratio 24.7 H, Glucose 213 H, Calcium 8.6, Phosphorus 2.6 L 03/04/25 06:23: POC Glucose 187 H 03/04/25 11:31: POC Glucose 299 H Micro: Microbiology 03/03/25 03:10 Sputum, Expectorated/Coughed Gram Stain - Final 03/03/25 03:10 Sputum, Expectorated/Coughed Respiratory Culture - Preliminary Appears to be normal respiratory lindsay. Further studies to follow. 03/03/25 01:25 Urine, Clean Catch Legionella Antigen - Final 03/03/25 01:25 Urine, Clean Catch Streptococcus pneumoniae Antigen (M - Final 03/03/25 01:35 Mucosa - Nasopharyngeal Respiratory Panel (PCR) - Final Rhinovirus 03/02/25 20:30 Mucosa - Nose SARS-CoV-2, Influenza & RSV (PCR) - Final Physical Exam Narrative Seen and examined. Patient is very short of breath. In the morning, he gets very dyspneic after short walk and pulse ox 89% on room air with dyspnea. Earlier, he was admitted with shortness of breath. Has history of asthma since young age, adulthood, diagnosed in 20s. He also has history of autoimmune disease including DM type I and multiple sclerosis. Patient's mother and sister present in the room. Physical exam General: Alert, Oriented x3, Cooperative. BMI 19.8 kg/m? HEENT: Atraumatic, PERRLA, EOMI, Normocephalic. Oral: No Gingival or Mucosal Lesions/ Ulcerations Neck: Supple, No JVD, Negative Carotid Bruits Chest wall/Lungs: Air entry diminished in bilateral lung bases. Dyspnea on exertion mild and fine expiratory wheezing Cardiovascular: Regular rate and rhythm, Normal S1,S2, No M/G/R Abdomen: Bowel Sounds Present, Soft, Non Tender, Non-Distended : No dysuria. No renal angle tenderness. No suprapubic tenderness. Extremities: No edema, Capillary Refill Less than 3 Seconds Skin: No rashes, No breakdown Musculoskeletal: No Tenderness to Palpation of Joints or Extremities Neurological: Cranial nerves II-XII grossly intact, DTR 2+/4. No acute focal neurological deficit. Psych/Mental Status: Flat affect Assessment & Plan Assessment/Plan (1) Leukocytosis: QUALIFIERS: Leukocytosis type: unspecified Qualified Code(s): D72.829 - Elevated white blood cell count, unspecified (2) Pneumonia: QUALIFIERS: Pneumonia type: due to unspecified organism Laterality: unspecified laterality Lung location: unspecified part of lung Qualified Code(s): J18.9 - Pneumonia, unspecified organism (3) Rhinovirus: (4) Asthma exacerbation: QUALIFIERS: Asthma severity: unspecified severity Asthma persistence: persistent Qualified Code(s): J45.901 - Unspecified asthma with (acute) exacerbation (5) Acute respiratory insufficiency: (6) Tobacco abuse: (7) Thrombocytosis: (8) Type 1 diabetes mellitus with complication, with long-term current use of insulin: PLAN: Plan 34-year-old male admitted with shortness of breath for few days using albuterol neb without improvement. History of adult onset asthma, type 1 diabetes mellitus and multiple sclerosis 1. Acute exacerbation of asthma due to viral pneumonia from rhinovirus: Patient is being admitted in PCU. Chest x-ray initially reviewed and shows mild pulmonary vascular congestion with no focal consolidation. Furthermore, patient had CT chest, imaging reviewed shows diffuse tree-in-bud densities in all lobes concerning for endobronchial infectious etiology but no airspace consolidation. No pleural effusion. No thoracic lymphadenopathy. Discussed with patient's mother and sister and seems bronchiolar/interstitial pneumonia possible due to rhinovirus pneumonia. Urinary antigens are negative. Respiratory panel positive for rhinovirus. has leukocytosis 30.5 K, predominantly neutrophil 83 to 95%, thrombocytosis. Discontinue ceftriaxone and doxycycline 03/04: Gram stain of physician culture appears normal respiratory lindsay. Patient has critical high leukocytosis, admits of bolus of 1%, neutrophil 89.5%, lymphopenia due to high-dose of steroid. No fever or other signs of pneumonia or sepsis. Continue bronchodilator IV steroid, incentive spirometry. Can change to prednisone 40 mg daily from tomorrow AM. Anticipate discharge tomorrow. No fever for 24 hours, off antibiotic. Mild hypophosphatemia: Neutra-Phos ordered 2. Mild hypoxia with acute asthma exacerbation: Patient is being managed on scheduled bronchodilator, IV Solu-Medrol, Mucinex, incentive spirometry and Pep.. 3. Thrombocytosis of 712K present on admission: Monitor CBC 4. Chronic active smoking with history of nicotine dependence: Patient on nicotine patch. 5. DM-1 (~1996); s/p insulin pump with microalbuminuria and history of DKA - Maintain insulin pump as previous. A1c 8.2%. Glucose is high between 182-199. On insulin pump 6. History of pneumonia - Noted with CT of chest pending for #1. 7. History of medical cannabis use - Noted. 8. Relapsing-remitting multiple sclerosis - Apparently stable at this time. 9. DVT/GI prophylaxis - Enoxaparin 40 mg sq daily plus SCD's. Pantoprazole 40 mg PO daily. Microbiology Past 72 Hours 03/03/25 03:10 Sputum, Expectorated/Coughed Gram Stain - Final 03/03/25 03:10 Sputum, Expectorated/Coughed Respiratory Culture - Preliminary Appears to be normal respiratory lindsay. Further studies to follow. 03/03/25 01:25 Urine, Clean Catch Legionella Antigen - Final 03/03/25 01:25 Urine, Clean Catch Streptococcus pneumoniae Antigen (M - Final 03/03/25 01:35 Mucosa - Nasopharyngeal Respiratory Panel (PCR) - Final Rhinovirus 03/02/25 20:30 Mucosa - Nose SARS-CoV-2, Influenza & RSV (PCR) - Final Laboratory Results 03/02/25 20:35: Diff Path Review Reviewed 03/03/25 16:56: POC Glucose 312 H 03/03/25 21:49: POC Glucose 237 H 03/04/25 05:15: WBC 43.0 H*, RBC 4.60, Hgb 13.5, Hct 41.4, MCV 90.0, MCH 29.3, MCHC 32.6, RDW Std Deviation 47.6 H, RDW Coeff of Ronnell 14.4, Plt Count 636 H, MPV 9.1, Immature Gran % (Auto) 1.100 H, Neut % (Auto) 89.5 H, Lymph % (Auto) 3.2 L, [place] % (Auto) 5.8, Eos % (Auto) 0.1, Baso % (Auto) 0.3, Absolute Neuts (auto) 38.5 H, Absolute Lymphs (auto) 1.36, Nucleated RBC % 0, Sodium 139, Potassium 4.6, Chloride 106, Carbon Dioxide 20.2 L, Anion Gap 13, BUN 14, Creatinine 0.57 L, Estim Creat Clear Calc 160.93, Est GFR (MDRD) Non-Af 131, BUN/Creatinine Ratio 24.7 H, Glucose 213 H, Calcium 8.6, Phosphorus 2.6 L 03/04/25 06:23: POC Glucose 187 H 10/23/25 11:31: POC Glucose 299 H 03/03/25 09:07: POC Glucose 210 H 03/03/25 10:56: POC Glucose 307 H Charges/Coding Visit Charges Inpatient E&M: 43986 Subs Hosp L2
[2025-03-04] MEDS: Na Biphos/Potassium Phosphate PACKET 1 PACKET PO (22:25)
--- NOTE | 2025-03-04 23:10 | NURSING ---
This RN took over care of this patient at this time.
[2025-03-05] VITALS (8 sets, daily range): BP systolic 127–135; BP diastolic 52–68; PULSE 68–90; RESP 16–20; TEMP 36.4–36.8; O2SAT 88–100
[2025-03-05] MEDS: 0.9% Saline Lock 10 ML Syringe IV (00:58)
[2025-03-05] MEDS: Na Biphos/Potassium Phosphate PACKET 1 PACKET PO ×2 (05:56→13:56)
[2025-03-05] MEDS: Nicotine (PBKC) 14 MG Patch TD (10:49)
[2025-03-05] MEDS: Chlorhexidine 480 ML 15 ML PO (10:50)
[2025-03-05] MEDS: hydrOXYzine PAM 25 MG Capsule PO (10:50)
[2025-03-05] MEDS: Tolterodine Tartrate 4 MG CAP.SA PO (10:50)
[2025-03-05] MEDS: INSULIN PUMP (SELF-ADMIN/POM) 1 EACH NOTE (11:04)
[2025-03-05 12:27] LABS: D-Dimer Quantitative (DVT/PE) 0.27 FEU/ug/m (0.27-0.49)
--- NOTE | 2025-03-05 12:46 | DCINST_ITS ---
Discharge Instructions
--- NOTE | 2025-03-05 12:46 | PCM.DC ---
Discharge Instructions DC O2, CPAP, BIPAP needs Home O2 Discharge instructions: Yes Type of respiratory needs?: Oxygen Oxygen frequency: At rest and With Ambulation Oxygen liters per minute during Ambulation: 2 L Dressing / Incision Discharge Activity: Return to Normal Activity Weight Bearing Status: Full weight bearing Follow Up Care Test Results: Test results from this visit will be discussed in further detail at your follow-up appointment, if applicable. Discharge Plan Admission Admit Date/Time: 03/02/25 23:37 Primary Reason for Your Visit: Hypoxia, rhinovirus tracheobronchitis Attending Provider: Matias Rosales Primary Care Provider: Neto Kirkland Consulting Providers: Dewayne Mullen; Jose Carlos Patel Instructions Additional Instructions / Restrictions: Do not smoke Discharge Orders/Prescriptions Prescriptions: New Insulin Pump (Self-Admin/Pom) 1 ea NOTE ACHS Qty: 0 0RF nicotine 14 mg/24 hr Patch 24 Hour 14 mg transdermal DAILY Qty: 28 0RF prednisone 20 mg Tablet 40 mg PO BREAKFAST Qty: 21 0RF Rx Instructions: 1 twice a day for 7 days then 1/day thereafter until finished albuterol sulfate 2.5 mg /3 mL (0.083 %) solution for nebulization 2.5 mg inhalation Q4H PRN (Reason: shortness of breath or wheezing) Qty: 180 0RF Continued Rituxan 10 mg/mL concentrate See Rx Instructions .ROUTE .COMPLEX Patient Comments: infusion q 6 months Rx Instructions: 10 mg intravenously ;infusion q 6 months (DME) pen needle, diabetic [BD Ultra-Fine Key Pen Needle] 32 gauge x 5/32 needle See Rx Instructions .ROUTE .MEDSUPPLY Qty: 150 6RF Rx Instructions: 5 times daily lisinopril 20 mg tablet 20 mg PO DAILY Qty: 90 3RF cholecalciferol (vitamin D3) 1,250 mcg (50,000 unit) capsule 1,250 mcg PO QWEEK albuterol sulfate 90 mcg/actuation HFA aerosol inhaler 2 puff inhalation Q4H PRN (Reason: wheezing) chlorhexidine gluconate 0.12 % mouthwash 1 applic PO BID hydroxyzine HCl 25 mg tablet 25 mg PO DAILY solifenacin 10 mg tablet 10 mg PO DAILY (DME) insulin pump cart,automated,BT Cartridge See Rx Instructions .Route Qty: 10 5RF Rx Instructions: 1 pod q 72 hrs insulin aspart U-100 100 unit/mL solution 100 unit continuous subcutaneous infusion .continuous Qty: 30 5RF Rx Instructions: via insulin pump Referrals / Follow Up: Neto Kirkland MD [Primary Care Provider, Family Practice] - In 1 Week Disposition Disposition (needs filled in before D/C Order can be placed): Home, Self Care
--- NOTE | 2025-03-05 12:53 | PCM.DC.SUM ---
Providers Date of Admission: 03/02/25 Date of Discharge: 03/05/25 Primary Care Physician: Dr. Neto Kirkland MD Reason For Visit: SUSPECTED PNEUMONIA, AE ASTHMA AND ACUTE Diagnosis Discharge Diagnosis (1) Leukocytosis: Status: Acute Code(s): D72.829 - Elevated white blood cell count, unspecified Qualifiers: Leukocytosis type: unspecified Qualified Code(s): D72.829 - Elevated white blood cell count, unspecified (2) Pneumonia: Status: Acute Code(s): J18.9 - Pneumonia, unspecified organism Qualifiers: Laterality: unspecified laterality Lung location: unspecified part of lung Pneumonia type: due to unspecified organism Qualified Code(s): J18.9 - Pneumonia, unspecified organism (3) Rhinovirus: Status: Acute Code(s): B34.8 - Other viral infections of unspecified site (4) Asthma exacerbation: Status: Acute Code(s): J45.901 - Unspecified asthma with (acute) exacerbation Qualifiers: Asthma persistence: persistent Asthma severity: unspecified severity Qualified Code(s): J45.901 - Unspecified asthma with (acute) exacerbation (5) Acute respiratory insufficiency: Status: Acute Code(s): R06.89 - Other abnormalities of breathing (6) Tobacco abuse: Status: Acute Code(s): Z72.0 - Tobacco use (7) Thrombocytosis: Status: Acute Code(s): D75.839 - Thrombocytosis, unspecified (8) Type 1 diabetes mellitus with complication, with long-term current use of insulin: Status: Chronic Code(s): E10.8 - Type 1 diabetes mellitus with unspecified complications Plan 1. Acute exacerbation of chronic asthma secondary to rhinovirus tracheobronchitis #2 rhinovirus tracheobronchitis #3 hypoxia secondary to #1 #4 type 1 diabetes #5 multiple sclerosis Medications at Discharge Home Medications rituximab 10 mg/mL concentrate,intravenous (Rituxan) See Rx Instructions .Route .COMPLEX 03/26/18 pen needle, diabetic 32 gauge x (BD Ultra-Fine Key Pen Needle) #150 ea 07/03/22 lisinopril 20 mg tablet 20 mg PO DAILY #90 tabs 02/25/24 cholecalciferol (vitamin D3) 1,250 mcg (50,000 unit) capsule 1,250 mcg PO QWEEK 09/01/24 insulin pump cart,automated,BT #10 ea 10/09/24 insulin aspart U-100 100 unit/mL subcutaneous solution 100 unit continuous subcutaneous infusion .continuous #30 mL 10/26/24 albuterol sulfate 90 mcg/actuation aerosol inhaler 2 puff inhalation Q4H PRN wheezing 03/02/25 chlorhexidine gluconate 0.12 % mouthwash 1 applic PO BID 03/02/25 hydroxyzine HCl 25 mg tablet 25 mg PO DAILY 03/02/25 solifenacin 10 mg tablet 10 mg PO DAILY 03/02/25 Insulin Pump (Self-Admin/Pom) 1 ea NOTE ACHS ##0 03/05/25 albuterol sulfate 2.5 mg/3 mL (0.083 %) solution for nebulization 2.5 mg (3 mL) inhalation Q4H PRN shortness of breath or wheezing #180 mL 03/05/25 nicotine 14 mg/24 hr daily transdermal patch 14 mg transdermal DAILY #28 ea 03/05/25 prednisone 20 mg tablet 40 mg (2 x 20 mg) PO BREAKFAST #21 tabs 03/05/25 Hospital Course Operations None Procedures None Summary of Care Provided Minutes Spent on Discharge: 31 Hospital Course: This 34-year-old white male was seen in the emergency room at [facility] with complaints of shortness of breath x 48 hours, he also complained of a cough that was productive of phlegm at times. He denied any fever, he did say that he had some chills. Patient has a history of asthma and despite using his home inhalers, his shortness of breath worsened. Patient also relates to history of MS. Workup in the emergency room included labs which showed white blood cell count of 30,000, 1 view chest x-ray showed no evidence of infiltrate, patient was given IV Levaquin and aerosol treatments and 40 of prednisone. Patient continued to be dyspneic and tachycardic, he required supplemental oxygen to maintain his pulse ox above 90%. Patient was admitted to PCU, corticosteroids and aerosol treatments were continued, respiratory panel was positive for rhinovirus. On 03/05/2025, patient was seen and examined: On examination he appeared in good health and spirits. Vital signs as documented. Skin warm and dry and without overt rashes. Neck without JVD, neck was supple, trachea midline, thyroid was normal. Lungs scattered expiratory wheezes were noted bilaterally, normal air movement was noted. Heart exam notable for regular rhythm, normal sounds and absence of murmurs, rubs or gallops. Abdomen unremarkable and without evidence of organomegaly, masses, or abdominal aortic enlargement. Bowel sounds are present, abdomen is not distended. Extremities nonedematous, no cyanosis was noted, no clubbing was noted. Neuro: Cranial nerves II through XII are grossly intact, no focal motor deficits were noted, sensation to light touch and pinprick intact, motor exam 5/5 throughout. Psych: Patient is alert and oriented x3, he does not appear anxious or depressed, he does not appear agitated. Patient required 2 L of oxygen via nasal cannula at the time of discharge during ambulation, he did not require oxygen at rest to maintain his pulse ox above 88%. Patient was discharged home in stable condition on 03/05/2025. Weight / BMI Weight Weight: 63.5 kg Body Mass Index (BMI) 20.0 ABG / Lab / Microbiology Data 03/04/25 05:15 03/04/25 05:15 Laboratory: Laboratory Results - last 24 hr 03/05/25 11:00: POC Glucose 203 H 03/05/25 11:55: D-Dimer Quant (PE/DVT) 0.27 Microbiology: Microbiology 03/03/25 03:10 Sputum, Expectorated/Coughed Gram Stain - Final 03/03/25 03:10 Sputum, Expectorated/Coughed Respiratory Culture - Final 03/02/25 20:35 Blood Culture (Wb) - Left Hand Blood Culture - Preliminary No growth in 48 hours. 03/02/25 20:35 Blood Culture (Wb) - Left Wrist Blood Culture - Preliminary No growth in 48 hours. 03/03/25 01:25 Urine, Clean Catch Legionella Antigen - Final 03/03/25 01:25 Urine, Clean Catch Streptococcus pneumoniae Antigen (M - Final 03/03/25 01:35 Mucosa - Nasopharyngeal Respiratory Panel (PCR) - Final Rhinovirus 03/02/25 20:30 Mucosa - Nose SARS-CoV-2, Influenza & RSV (PCR) - Final D/C Instructions Weight Bearing Status: Full weight bearing DC O2, CPAP, BIPAP Needs Home O2 Discharge instructions: Yes Type of respiratory needs?: Oxygen Oxygen frequency: At rest and With Ambulation Oxygen liters per minute during Ambulation: 2 L DC home with Oxygen: Yes Home O2 MD Review: I have reviewed the oxygen testing, and the patient qualifies for home oxygen equipment and portability. The patient is mobile in the home and the community. Meaningful Use Info Meaningful Use Meaningful Use Diagnoses (Choose all that apply): None applicable Discharge Plan Admission Admit Date/Time: 03/02/25 23:37 Primary Reason for Your Visit: Hypoxia, rhinovirus tracheobronchitis Attending Provider: Matias Rosales Primary Care Provider: Neto Kirkland Consulting Providers: Dewayne Mullen; Jose Carlos Patel Instructions Additional Instructions / Restrictions: Do not smoke Discharge Orders/Prescriptions Prescriptions: New Insulin Pump (Self-Admin/Pom) 1 ea NOTE ACHS Qty: 0 0RF nicotine 14 mg/24 hr Patch 24 Hour 14 mg transdermal DAILY Qty: 28 0RF prednisone 20 mg Tablet 40 mg PO BREAKFAST Qty: 21 0RF Rx Instructions: 1 twice a day for 7 days then 1/day thereafter until finished albuterol sulfate 2.5 mg /3 mL (0.083 %) solution for nebulization 2.5 mg inhalation Q4H PRN (Reason: shortness of breath or wheezing) Qty: 180 0RF Continued Rituxan 10 mg/mL concentrate See Rx Instructions .ROUTE .COMPLEX Patient Comments: infusion q 6 months Rx Instructions: 10 mg intravenously ;infusion q 6 months (DME) pen needle, diabetic [BD Ultra-Fine Key Pen Needle] 32 gauge x 5/32 needle See Rx Instructions .ROUTE .MEDSUPPLY Qty: 150 6RF Rx Instructions: 5 times daily lisinopril 20 mg tablet 20 mg PO DAILY Qty: 90 3RF cholecalciferol (vitamin D3) 1,250 mcg (50,000 unit) capsule 1,250 mcg PO QWEEK albuterol sulfate 90 mcg/actuation HFA aerosol inhaler 2 puff inhalation Q4H PRN (Reason: wheezing) chlorhexidine gluconate 0.12 % mouthwash 1 applic PO BID hydroxyzine HCl 25 mg tablet 25 mg PO DAILY solifenacin 10 mg tablet 10 mg PO DAILY (DME) insulin pump cart,automated,BT Cartridge See Rx Instructions .Route Qty: 10 5RF Rx Instructions: 1 pod q 72 hrs insulin aspart U-100 100 unit/mL solution 100 unit continuous subcutaneous infusion .continuous Qty: 30 5RF Rx Instructions: via insulin pump Referrals / Follow Up: Neto Kirkland MD [Primary Care Provider, Family Practice] - In 1 Week Disposition Disposition (needs filled in before D/C Order can be placed): Home, Self Care Charges/Coding Visit Charges Inpatient E&M: 01726 Disch Hosp >30min
--- NOTE | 2025-03-05 13:35 | CASEMGMT ---
PATI SWANN NOTE: Discharge order is in. Home O2 testing has been completed. Pt qualifies for o2 @ 2 L/M w/exertion. [place] [facility] [place] [facility] PATI SWANN to room. Pt aware he is discharging home today. Made aware O2 and nebulizer will be delivered to his room. Aware Rx's have been sent to [facility] retail pharmacy, would like [id number], pharmacy notified. Pt denies having any further discharge needs or concerns. His mom will be taking him home. Zak MATAMOROSN PATI CM
--- NOTE | 2025-03-05 14:33 | PHA.DC_ITS ---
Pharmacy DC Med Rec Counseling
--- NOTE | 2025-03-05 14:33 | PHA.DC.MC.R ---
Pharmacy [facility] Counseling Pharmacy Service has performed discharge medication reconciliation and counseling for this patient. The patient's discharge medication list was reviewed for discrepancies and discrepancies were resolved. The patient was counseled on the following discharge medications and changes in medications for homegoing were reviewed. The Reason for Use, instructions for use, and potential side effects were reviewed for all new medications. The patient's questions regarding all of their medications were answered. 1. Albuterol nebs every 4 hours as needed for wheezing/shortness of breath 2. nicotine 14 mg patch daily 3. Prednisone 20 mg PO BID x 7 days then daily for 7 days The patient was able to verbally demonstrate an understanding of their discharge medications. Medications at Discharge Home Medications rituximab 10 mg/mL concentrate,intravenous (Rituxan) See Rx Instructions .Route .COMPLEX 03/26/18 pen needle, diabetic 32 gauge x (BD Ultra-Fine Key Pen Needle) #150 ea 07/03/22 lisinopril 20 mg tablet 20 mg PO DAILY #90 tabs 02/25/24 cholecalciferol (vitamin D3) 1,250 mcg (50,000 unit) capsule 1,250 mcg PO QWEEK 09/01/24 insulin pump cart,automated,BT #10 ea 10/09/24 insulin aspart U-100 100 unit/mL subcutaneous solution 100 unit continuous subcutaneous infusion .continuous #30 mL 10/26/24 albuterol sulfate 90 mcg/actuation aerosol inhaler 2 puff inhalation Q4H PRN wheezing 03/02/25 chlorhexidine gluconate 0.12 % mouthwash 1 applic PO BID 03/02/25 hydroxyzine HCl 25 mg tablet 25 mg PO DAILY 03/02/25 solifenacin 10 mg tablet 10 mg PO DAILY 03/02/25 Insulin Pump (Self-Admin/Pom) 1 ea NOTE ACHS ##0 03/05/25 albuterol sulfate 2.5 mg/3 mL (0.083 %) solution for nebulization 2.5 mg (3 mL) inhalation Q4H PRN shortness of breath or wheezing #180 mL 03/05/25 nicotine 14 mg/24 hr daily transdermal patch 14 mg transdermal DAILY #28 ea 03/05/25 prednisone 20 mg tablet 40 mg (2 x 20 mg) PO BREAKFAST #21 tabs 03/05/25
== END 2025-03-05 15:54 | disposition home or self-care (01) | DRG 202 ==
LOC: ED 23:22 → PCU 03-03 00:58
PROVIDERS: Internal Medicine; Admitting Provider Internal Medicine; Emergency Provider Emergency Medicine; PCP Family Medicine; Visit Provider Internal Medicine
DX: J45.901 Unspecified asthma with (acute) exacerbation (principal); J12.89 Other viral pneumonia; E83.39 Other disorders of phosphorus metabolism; E10.69 Type 1 diabetes mellitus with other specified complication; D75.839 Thrombocytosis, unspecified; F17.210 Nicotine dependence, cigarettes, uncomplicated; J20.6 Acute bronchitis due to rhinovirus; Z79.4 Long term (current) use of insulin; G35.A Relapsing-remitting multiple sclerosis; R80.8 Other proteinuria; Z96.41 Presence of insulin pump (external) (internal); R09.02 Hypoxemia; Z23 Encounter for immunization; Z87.01 Personal history of pneumonia (recurrent); Z79.899 Other long term (current) drug therapy
CPT/HCPCS: 36415; 71045; 71260; 80048; 80053; 81001; 82962; 83036; 83735; 84100; 84443; 85025; 85379; 87040; 87070; 87205; 87449; 87631; 87633; 93005; 94640; 94668; 99252; 99285; Q9967; A4216; G0463